=== PATIENT | female | born 1940 | race Caucasian/White ===

== ENCOUNTER 2019-04-17 14:18 | Emergency (ER) | payer MEDICARE, SELFPAY ==
--- NOTE | ~2019-04-17 | XR_ITS ---
EXAMINATION: XR knee RT 2V DATE: 04/17/2019 16:29 [employer]PERINTENDENT INDICATION: Knee pain after fall. TECHNIQUE: 2 views right knee FINDINGS: There is a right total knee arthroplasty which is well seated. No underlying fracture or tr aumatic malalignment. There is a small joint effusion. No focal soft tissue abnormality otherwise. No foreign bodies. IMPRESSION: 1. No acute fracture. Reviewed, dictated and finalized at location A. [place] [employer]PERATIONS SUPERINTENDENT IMPRESSION: 1. No acute fracture.
[2019-04-17 14:34] VITALS: BP 172/75; PULSE 66; RESP 20; TEMP 37.4; O2SAT 97
[2019-04-17 14:56] VITALS: BP 172/75; PULSE 66; RESP 20; TEMP 37.4; O2SAT 96
[2019-04-17 15:02] VITALS: BP 159/92; PULSE 70; RESP 14; O2SAT 99
--- NOTE | 2019-04-17 15:57 | ED.GENADULT ---
HPI - General Adult General Chief complaint: Fall Stated complaint: MULTIPLE C/O Time Seen by Provider: 04/17/19 15:55 Source: patient Mode of arrival: ambulatory Limitations: no limitations History of Present Illness HPI narrative: Pt is here for evaluation after having multiple falls at home this week. She hasn't fallen since Sat. She also has symptoms of UTI and feels this may be contributing. Her last fall she landed hard on her right knee and has had pain since. She has a walker at home but rarely uses it because it doesn't help . She has frequent UTI's and has what she describes as neurogenic bladder. Her last UTI was approximately 2 weeks ago. Onset (ago): day(s) Location: right (knee) Radiation: non-radiation Severity: moderate Pain Consistency: constant Relieving factors: none Exacerbating factors: movement Treatments prior to arrival: none Related Data Allergies Allergy/AdvReac Type Severity Reaction Status Date / Time Quinolones Allergy Mild JOINT PAIN Verified 11/07/18 18:30 ciprofloxacin Allergy Unknown Verified 04/22/13 11:47 levofloxacin Allergy Unknown Verified 04/22/13 11:48 Sulfa (Sulfonamide Allergy Unknown Verified 10/24/18 14:09 Antibiotics) Review of Systems Constitutional: Constitutional: Reports no additional constitutional complaints Cardiovascular: Cardiovascular: Reports no additional cardiovascular complaints Respiratory: Respiratory: Reports no additional respiratory complaints Gastrointestinal: Gastrointestinal: Reports no additional gastrointestinal complaints Genitourinary: Genitourinary: Reports urinary incontinence (chronic) and Reports vaginal pruritus Musculoskeletal: Musculoskeletal: Reports as per HPI Neurologic: Reports system reviewed and no additional complaints, except as documented [facility] Past Medical History Medical History (Updated 04/17/19 @ 17:47 by Ivelisse Jiménez PA-C) Cervical cancer Cholangiocarcinoma UTI (urinary tract infection) Surgical History Surgical History (Updated 04/17/19 @ 16:43 by Ivelisse Jiménez PA-C) History of colon resection Total knee replacement status Family History Family History (Updated 10/15/15 @ 23:19 by DOCTOR UNKNOWN) Father Family history of diabetes mellitus in first degree relative Family history of heart disease in male family member before age 55 Family history of coronary artery disease Family history of congestive heart failure Sibling Family history of diabetes mellitus in first degree relative Other Diabetes mellitus Family history of malignant neoplasm Family history of mental disorder Hypertension Social History Social History Smoking status: Never smoker Alcohol intake: never Gender identity (if verbalized by the patient): Female Exam Const: General: healthy appearing, no acute distress and alert Orientation/consciousness: patient oriented x3 HENMT: Head: normal to inspection Eyes: Pupils: Equal, round and reactive pupils present Resp: Effort & Inspection: normal respiratory effort Auscultation: clear to auscultation bilaterally Cardio: Rate: regular rate Rhythm: regular rhythm GI: GI Palp: Yes Soft to palpation Auscultation: normal bowel sounds : General: Yes no CVA tenderness Speculum Exam - Vagina: abnormal vaginal discharge white and caseous Other: erythema to vulvo area from scratching. Skin: General skin exam: normal color Neuro: General: patient oriented x3 and moves all extremities Extrem: General: normal to inspection and edema (knee, mild ) right Course Course Emergency Course: Pt states that she does not have an allergy to Cipro and that is what she usually takes for her UTI. She does not know what her reaction to sulfa medications is. Urine is consistent with UTI, exam with yeast. Will treat both. Recommend using walker at home and following up with PMD for referral to physical therapy. She is to call [employer] car for transportation. Haroldo S
[2019-04-17 16:16] VITALS: BP 104/94; PULSE 67; RESP 18; O2SAT 96
[2019-04-17 16:38] LABS: Basophils Absolute Auto 0.1 K/mm3 (0.0-0.1); Basophils Percent Auto 0.7 % (0.2-1.2); Eosinophils Absolute Auto 0.3 K/mm3 (0-0.3); Eosinophils Percent Auto 3.7 % (0-4.4); Hematocrit 38.6 % (37.0-47.0); Hemoglobin 12.5 g/dL (12.0-15.0); Immature Granulocyte Absolute 0.01 K/mm3 (0.00-0.031); Immature Granulocyte Percent A 0.1 % (0-0.5); Lymphocytes Absolute Auto 2.18 K/mm3 (0.9-3.2); Lymphocytes Percent Auto 30.9 % (18.3-44.2); Mean Corpuscular HGB Conc 32.4 g/dl (32-36); Mean Corpuscular Hemoglobin 27.3 pg (26-34); Mean Corpuscular Volume 84.3 fl (80-100); Mean Platelet Volume 9.7 fl (7.4-10.4); Monocytes Absolute Auto 0.5 K/mm3 (0.1-0.6); Monocytes Percent Auto 7.1 % (2.6-8.5); Neutrophils Absolute Auto 4.1 K/mm3 (1.3-6.7); Neutrophils Percent Auto 57.5 % (45.5-73.1); Platelet Count Result 234 k/mm3 (150-375); Red Blood Count 4.58 M/mm3 (4.2-5.4); Red Cell Distribution Width 13.3 % (11.5-14.5); White Blood Count 7.1 K/mm3 (4.5-10.0)
[2019-04-17 16:49] LABS: Alanine Aminotransferase 12 U/L (4-35); Albumin Level 3.8 g/dL (3.5-5.1); Alkaline Phosphatase 112 U/L (38-126); Aspartate Amino Transferase 19 U/L (14-36); Bilirubin,Total 0.4 mg/dL (0.2-1.3); Blood Urea Nitrogen 16 mg/dL (7-17); Calcium 9.2 mg/dL (8.4-10.2); Carbon Dioxide 24 mmol/L (22-30); Chloride 104 mmol/L (98-107); Estimated CRCL calculation 58 ml/min; Estimated Glomerular Filt Rate > 60; Glucose 129 mg/dL (65-105); Sodium 138 mmol/L (137-145)
[2019-04-17 17:29] LABS: Add Urine Microscopic? YES; Appearance Urine Cloudy (Clear); Bacteria Urine Trace /hpf; Bilirubin Urine Negative (Negative); Blood Urine 2+ (Negative); Color Urine Yellow (Yellow); Glucose Urine UA Negative (Negative); Ketones Urine Negative (Negative); Leukocyte Esterase Ur 3+ LEU/UL (Negative); Nitrate Urine Negative (Negative); Protein Urine 2+ mg/dL (Negative); RBC Urine >75 /hpf (0-2); Specific Grav Ur 1.025 (1.001-1.035); Squamous Epithelial Cell Urine Few /hpf (Few); Urobilinogen Urine Negative mg/dL (<2.0); WBC Clumps Urine Present /HPF; WBC Urine >75 /hpf
[2019-04-17] MEDS: FLUCONAZOLE 150 MG TABLET PO (17:50)
[2019-04-17 18:04] VITALS: BP 124/81; PULSE 71; RESP 20
== END 2019-04-17 18:15 | disposition home or self-care (01) ==
PROVIDERS: Physician Assistant; Emergency Provider Emergency Medicine; PCP Family Medicine
DX: N39.0 Urinary tract infection, site not specified (principal); M25.461 Effusion, right knee; Z96.659 Presence of unspecified artificial knee joint; Z90.49 Acquired absence of other specified parts of digestive tract; Z85.41 Personal history of malignant neoplasm of cervix uteri; Z85.09 Personal history of malignant neoplasm of other digestive organs; W19.XXXA Unspecified fall, initial encounter
CPT/HCPCS: 36415; 51701; 73560; 80053; 81001; 85025; 87077; 87086; 87088; 87186; 99283; A9270

== ENCOUNTER 2019-05-26 07:29 | Observation (INO) | payer MEDICARE, SELFPAY ==
--- NOTE | ~2019-05-26 | XR_ITS ---
EXAMINATION: XR chest 1V 05/26/2019 08:52 INDICATION: Status post fall. Chest pain. PROCEDURE: AP view of the chest COMPARISON: Comparison to multiple prior studies sequentially, with oldest reviewed study dated 08/2014. FINDINGS: The lungs are clear. The cardiomediastinal silhouette is within normal limits. There are no pleural effusions. There is no pneumothorax suspected. IMPRESSION: 1: NO ACUTE CARDIOPULMONARY DISEASE. Reviewed, dictated and finalized at location A.
--- NOTE | ~2019-05-26 | XR_ITS ---
EXAMINATION: XR knee RT 3V DATE: 05/26/2019 16:24 INDICATION: Right knee pain. Fall. TECHNIQUE: 3 views of right knee were obtained. COMPARISON: Right knee radiographs 04/17/2019 FINDINGS: There is a total right knee arthroplasty without patellar resurfacing in near-anatomic alig nment. No fracture. There are osteophytes of the patella. There is a small knee joint effusion. IMPRESSION: 1. Total right knee arthroplasty in near-anatomic alignment. 2. Small right knee joint effusion. Reviewed, dictated and finalized at location A.
--- NOTE | ~2019-05-26 | XR_ITS ---
XR humerus LT 05/26/2019 08:52 Indication: Left arm pain with swelling and bruising after fall Procedure: 2 views left humerus Comparison: 05/27/2018 Findings: No acute fracture or traumatic malalignment. Mild degenerative changes of the acromioclavic ular joint. No focal soft tissue abnormality. No foreign bodies. Impression: 1: No acute fracture. Reviewed, dictated and finalized at location A. Impression: 1: No acute fracture.
--- NOTE | ~2019-05-26 | CT_ITS ---
EXAMINATION: CT brain wo con DATE: 05/26/2019 08:48 INDICATION: Recurrent falls TECHNIQUE: Computed tomography (CT) of the head was performed without intravenous contrast. The dose- length product was 605.33 mGy-cm. The mA was adjusted according to patient size. Iterative reconstruc tion technique was employed. COMPARISON: CT dated 10/19/2016 FINDINGS: Generalized atrophy. No acute intracranial hemorrhage, infarction, mass or mass effect. The re are scattered moderate periventricular and subcortical white matter changes, most likely related t o small vessel ischemic disease (microangiopathy). No ventriculomegaly or midline shift. There is int racranial atherosclerosis. Paranasal sinuses and mastoids are pneumatized. No depressed skull fractur es. There is hyperostosis frontalis interna. Midline sagittal images demonstrate a normal corpus call osum and craniovertebral junction. IMPRESSION: 1. No acute intracranial abnormality. 2: Chronic age-related findings. Reviewed, dictated and finalized at location A.
--- NOTE | ~2019-05-26 | CT_ITS ---
EXAMINATION: CT lumbar spine wo con DATE: 05/26/2019 08:50 INDICATION: Frequent falls. Low back pain. History of lumbar fracture. TECHNIQUE: Computed tomography (CT) of the lumbar spine was performed without intravenous contrast. T he dose-length product was 1277.93 mGy-cm. Automated exposure control and iterative reconstruction te sarahque were employed. COMPARISON: CT abdomen dated 11/07/2018 FINDINGS: Stable chronic T11 burst fracture with approximately 60% loss of vertebral body height. Sta ble degenerative spondylolisthesis at L4-5 secondary to facet hypertrophy. There is disc narrowing at L4-5. No acute fracture or traumatic malalignment. Normal lumbar lordosis. There is atherosclerosis of the aorta. Stable chronic scar tissue in the presacral space. There is mild multilevel facet hyper trophy. IMPRESSION: 1. No acute fracture. 2: Stable chronic T11 burst fracture. 3: Mild-moderate lumbar spondylosis. Reviewed, dictated and finalized at location A.
[2019-05-26 07:20] VITALS: PULSE 80; RESP 16; TEMP 36.3; O2SAT 96
--- NOTE | 2019-05-26 07:31 | ECG_ITS ---
Measurements Intervals [place] Rate: 80 P: 28 DE: 167 QRS: -7 QRSD: 81 T: 64 QT: 385 QTc: 445 Interpretive Statements SINUS RHYTHM BASELINE ARTIFACT- I, III, AVL NORMAL ECG Electronically Signed On 05-26-2019 8:13:35 CDT by Alexandru Patel D.O.
--- NOTE | 2019-05-26 07:39 | ED.FALL ---
HPI - Fall General Chief Complaint: Fall Stated Complaint: FALLS Source: RN notes reviewed History of Present Illness HPI Narrative: Patient presents to emergency department from home for fall. Patient states she is had 4 falls over the past 24 hours. Patient currently lives at home by herself. States she does walk with a walker. Patient states she is been more weak. She denies striking her head or any loss of consciousness. Reports lower back pain as well as left upper arm pain. Patient denies any recent illness. Denies any fevers or chills chest pain shortness of breath abdominal pain nausea vomiting or any other symptoms. Patient does have a history of cholangiocarcinoma with partial liver resection in November. Following this she had a positive lymph node and followed with [facility] for oncology where she was told she needs chemo. The patient elected not to receive chemo or any further treatment at that time and was told at that time she had 15 to 18 months left to live. Related Data Home Medications Medication Instructions Recorded Confirmed amlodipine 5 mg PO DAILY 05/26/19 bupropion HCl 150 mg PO QAM 05/26/19 citalopram 40 mg DAILY 05/26/19 gabapentin 400 mg PO BID 05/26/19 hydroxyzine HCl 25 mg PO QID PRN 05/26/19 lisinopril 20 mg PO DAILY 05/26/19 potassium chloride 20 meq PO DAILY 05/26/19 pravastatin 80 mg PO DAILY 05/26/19 sumatriptan succinate 100 mg PO ONCE 05/26/19 verapamil 180 mg PO DAILY 05/26/19 Allergies Allergy/AdvReac Type Severity Reaction Status Date / Time Quinolones Allergy Mild JOINT PAIN Verified 11/07/18 18:30 ciprofloxacin Allergy Unknown Verified 04/22/13 11:47 levofloxacin Allergy Unknown Verified 04/22/13 11:48 Sulfa (Sulfonamide Allergy Unknown Verified 10/24/18 14:09 Antibiotics) Review of Systems Review of Systems: Narrative: Gen.: Denies fevers or chills Eyes: Denies eye pain or visual change ENT: Denies congestion Respiratory: Denies shortness of breath or cough CV: Denies chest pain or palpitations GI: Denies abdominal pain nausea, emesis or diarrhea denies burning, urgency, frequency or hematuria Musculoskeletal: Reports lower back pain Neuro: Reports weakness Skin: Denies rash Except as documented, all other systems reviewed and negative [facility] Past Medical History Medical History Cervical cancer Cholangiocarcinoma UTI (urinary tract infection) Surgical History Surgical History (Updated 04/17/19 @ 16:43 by Ivelisse Jiménez PA-C) History of colon resection Total knee replacement status Family History Family History (Updated 10/15/15 @ 23:19 by DOCTOR UNKNOWN) Father Family history of diabetes mellitus in first degree relative Family history of heart disease in male family member before age 55 Family history of coronary artery disease Family history of congestive heart failure Sibling Family history of diabetes mellitus in first degree relative Other Diabetes mellitus Family history of malignant neoplasm Family history of mental disorder Hypertension Social History Social History Smoking status: Never smoker Alcohol intake: never Gender identity (if verbalized by the patient): Female Exam Narrative: Exam Narrative: APPEARANCE: No acute distress, nontoxic, resting in bed EYES: EOMI, Mason HEENT: Normocephalic, atraumatic, OMM RESPIRATORY: No respiratory distress Clear to auscultation bilaterally with no rhonchi wheezing or rales. CARDIOVASCULAR: Regular rate and rhythm without murmurs rubs or gallops. ABDOMINAL: Soft, nontender, nondistended, no rebound or guarding MUSCULOSKELETAl: Moves all extremities. No clubbing, cyanosis or edema. Ecchymosis over left mid upper arm no tenderness left shoulder elbow wrist with full range of motion of all, radial pulse 2+ neurovascular intact Back: No midline thoracic daniela
[2019-05-26 07:49] LABS: Basophils Absolute Auto 0.1 K/mm3 (0.0-0.1); Basophils Percent Auto 0.9 % (0.2-1.2); Eosinophils Absolute Auto 0.3 K/mm3 (0-0.3); Hematocrit 37.6 % (37.0-47.0); Hemoglobin 12.1 g/dL (12.0-15.0); Immature Granulocyte Absolute 0.02 K/mm3 (0.00-0.031); Immature Granulocyte Percent A 0.3 % (0-0.5); Lymphocytes Absolute Auto 1.32 K/mm3 (0.9-3.2); Lymphocytes Percent Auto 19.8 % (18.3-44.2); Mean Corpuscular HGB Conc 32.2 g/dl (32-36); Mean Corpuscular Hemoglobin 27.7 pg (26-34); Mean Platelet Volume 9.3 fl (7.4-10.4); Monocytes Absolute Auto 0.6 K/mm3 (0.1-0.6); Monocytes Percent Auto 8.2 % (2.6-8.5); Neutrophils Absolute Auto 4.5 K/mm3 (1.3-6.7); Neutrophils Percent Auto 66.8 % (45.5-73.1); Platelet Count Result 250 k/mm3 (150-375); Red Blood Count 4.37 M/mm3 (4.2-5.4); Red Cell Distribution Width 13.2 % (11.5-14.5); White Blood Count 6.7 K/mm3 (4.5-10.0)
[2019-05-26 08:00] LABS: Alanine Aminotransferase 12 U/L (4-35); Albumin Level 3.6 g/dL (3.5-5.1); Alkaline Phosphatase 133 U/L (38-126); Aspartate Amino Transferase 19 U/L (14-36); Bilirubin,Total 0.5 mg/dL (0.2-1.3); Blood Urea Nitrogen 12 mg/dL (7-17); Calcium 8.9 mg/dL (8.4-10.2); Carbon Dioxide 26 mmol/L (22-30); Chloride 106 mmol/L (98-107); Estimated CRCL calculation 45 ml/min; Estimated Glomerular Filt Rate 48; Glucose 114 mg/dL (65-105); Potassium 4.5 mmol/L (3.4-5.0); Sodium 137 mmol/L (137-145)
--- NOTE | 2019-05-26 08:20 | PC.NURSE ---
pts colostomy bag emptied.
[2019-05-26 08:40] LABS: Prothrombin Time 12.7 Seconds (11.1-14.7)
[2019-05-26 08:41] LABS: Partial Thromboplastin Time 29.5 SECONDS (22.3-36.8)
[2019-05-26 09:26] LABS: Add Urine Microscopic? YES; Appearance Urine Cloudy (Clear); Bilirubin Urine Negative (Negative); Blood Urine 1+ (Negative); Color Urine Yellow (Yellow); Glucose Urine UA Negative (Negative); Ketones Urine Negative (Negative); Leukocyte Esterase Ur 3+ LEU/UL (Negative); Nitrate Urine Positive (Negative); Protein Urine 1+ mg/dL (Negative); Specific Grav Ur 1.012 (1.001-1.035); Squamous Epithelial Cell Urine Rare /hpf (Few); Urobilinogen Urine Negative mg/dL (<2.0); WBC Clumps Urine Present /HPF; WBC Urine >75 /hpf
[2019-05-26 11:40] VITALS: BP 164/83; PULSE 72; RESP 18; TEMP 37.2; O2SAT 98
--- NOTE | 2019-05-26 11:43 | ADMGEN ---
This patient, Amy Underwood, was admitted to [facility] Surg Room 330-02. Patient/family oriented to hospital policies and general routines including ID bracelet, bed and alarms, visiting hours, pain management, procedures, bathroom and other care routines, personal items, smoking policy, room service/diet, and visiting hours. Valuables list has been completed. Information on how to activate the Rapid Response Team has been discussed. Patient/Family are encouraged to report perceived risks to care and to ask questions if they do not understand what they are told or what they should do.
[2019-05-26 11:59] VITALS: BMI 44.3
[2019-05-26] MEDS: SODIUM CHLORIDE 0.9% IV 1,000 ML 80 ML IV CONT (12:14)
--- NOTE | 2019-05-26 14:00 | PM.IMHP ---
H&P: HPI History of Present Illness Chief complaint: Frequent falls. Narrative: Amy Underwood is a very pleasant 78-year-old female with history of cervical cancer in 1984, cholangiocarcinoma status post resection in November 2016, hypertension, and several other comorbidities who presented to the emergency department earlier this morning via EMS from home for evaluation of frequent falls. She has had multiple falls over the past several weeks, including 4 falls in the past 24 hours. She ambulates with a cane, and tells me that recently ?I feel really shaky inside when I am walking? which causes her to lose her balance and fall. Most falls she ends up going down onto her knees but in the last 24 hour she has fallen onto her left side, sustaining a large bruise on her left upper extremity. She is also complaining of pain in her right knee since the most recent fall. She is concerned that her cholangiocarcinoma is progressing, as she had no adjuvant therapy after her resection. An abdominal lymph node was biopsied sometime in November 2018, positive for metastatic cholangiocarcinoma but she declined further treatment. She also mentions that she has been ?battling a UTI for the last several months.? She continues to have dysuria, urgency, hesitancy, and frequency as well as malodorous urine. She has not had fever, chills, or sweats. Her appetite has been as per usual. She has not had fever or sweats but has had some chills. She denies head trauma and loss of consciousness in the falls. No vertigo. No focal weakness or paresthesias. She has not had cold or flu symptoms. No chest pain or shortness of breath. No nausea, vomiting, or loose stools. Review of Systems Review of Systems: Narrative: Twelve systems were reviewed with pertinent positives and negatives as per HPI. Weight has remained stable. No headache. No recent cold or flu symptoms. She denies chest pain, pleuritic pain, shortness of breath, and cough. Colostomy output is as per usual, sometimes having no output for several days. She was started on Colace which seems to have helped her output. Except as documented, all other systems were reviewed and are negative. [facility] Past Medical History Medical History (Updated 05/26/19 @ 15:36 by Cori Bailon PA-C) Cervical cancer In 1988. She did receive radiation implants with subsequent damage to both the bladder and the colon. In 2005 she underwent partial colon resection with colostomy. She also has neurogenic bladder and has intermittently had indwelling Vasquez catheters. Cholangiocarcinoma Status post resection and November [address] Melgar, hepatobiliary specialist at [place]. Lymph node biopsied in November 2018 was positive for metastatic disease, but she has declined further treatment. Chronic anemia Degenerative disc disease Depression with anxiety GERD (gastroesophageal reflux disease) History of kidney stones Hyperlipidemia Hypertension Migraine headache Osteoarthritis Peripheral neuropathy UTI (urinary tract infection) Frequent urinary tract infections, with last culture growing out Pseudomonas. Surgical History Surgical History (Updated 05/26/19 @ 15:29 by Cori Bailon PA-C) History of colon resection With colostomy secondary to complications from radiation therapy, 2016. History of resection of liver In November [address] Jaimes at [facility]. Status post cataract extraction Status post cholecystectomy 2005. Status post hysterectomy Status post total bilateral knee replacement Status post tubal ligation Family History Family History Father Family history of diabetes mellitus in first degree relative Family history of heart disease in male family member before age 55 Family history of coronary artery disease Family history of congestive heart failure Sibling Family history of diabetes mellitus in first
[2019-05-26 14:23] VITALS: BP 144/64; PULSE 74; RESP 16; TEMP 37.2; O2SAT 95
[2019-05-26 22:00] VITALS: BP 145/63; PULSE 75; RESP 18; TEMP 36.8; O2SAT 97
[2019-05-26] MEDS: buPROPion HCL XL (24 HR) 150 MG TABCR PO (22:34)
[2019-05-26] MEDS: ALPRAZOLAM 0.5 MG TABLET PO (23:00)
[2019-05-27] MEDS: SODIUM CHLORIDE 0.9% IV 1,000 ML 80 ML IV CONT (05:13)
[2019-05-27 06:00] VITALS: BP 147/56; PULSE 70; RESP 18; TEMP 36.7; O2SAT 96
[2019-05-27 06:29] LABS: Basophils Percent Auto 0.5 % (0.2-1.2); Eosinophils Absolute Auto 0.2 K/mm3 (0-0.3); Hematocrit 34.2 % (37.0-47.0); Hemoglobin 10.8 g/dL (12.0-15.0); Immature Granulocyte Absolute 0.01 K/mm3 (0.00-0.031); Immature Granulocyte Percent A 0.2 % (0-0.5); Lymphocytes Absolute Auto 1.72 K/mm3 (0.9-3.2); Lymphocytes Percent Auto 28.8 % (18.3-44.2); Mean Corpuscular HGB Conc 31.6 g/dl (32-36); Mean Corpuscular Hemoglobin 27.3 pg (26-34); Mean Corpuscular Volume 86.4 fl (80-100); Mean Platelet Volume 9.4 fl (7.4-10.4); Monocytes Absolute Auto 0.6 K/mm3 (0.1-0.6); Monocytes Percent Auto 9.4 % (2.6-8.5); Neutrophils Absolute Auto 3.4 K/mm3 (1.3-6.7); Neutrophils Percent Auto 57.1 % (45.5-73.1); Platelet Count Result 221 k/mm3 (150-375); Red Blood Count 3.96 M/mm3 (4.2-5.4); Red Cell Distribution Width 13.2 % (11.5-14.5)
[2019-05-27 06:38] LABS: Blood Urea Nitrogen 13 mg/dL (7-17); Calcium 8.1 mg/dL (8.4-10.2); Carbon Dioxide 25 mmol/L (22-30); Chloride 107 mmol/L (98-107); Estimated CRCL calculation 50 ml/min; Estimated Glomerular Filt Rate 54; Glucose 117 mg/dL (65-105); Potassium 4.1 mmol/L (3.4-5.0); Sodium 136 mmol/L (137-145)
[2019-05-27] MEDS: GABAPENTIN 400 MG CAPSULE PO (08:49)
[2019-05-27] MEDS: AMLODIPINE BESYLATE 5 MG TABLET PO (08:49)
[2019-05-27] MEDS: VERAPAMIL HCL 180 MG TABLET ER PO (08:49)
[2019-05-27] MEDS: lisinopriL 20 MG TABLET PO (08:49)
[2019-05-27] MEDS: CITALOPRAM HYDROBROMIDE 20 MG TABLET 40 MG PO (08:49)
[2019-05-27] MEDS: POTASSIUM CHLORIDE 20 MEQ TABLET.ER PO (08:49)
[2019-05-27 14:09] VITALS: BP 135/54; PULSE 70; RESP 18; TEMP 36.6; O2SAT 94
--- NOTE | 2019-05-27 16:48 | PM.IMPN ---
Progress Note: A&P Assessment and Plan (1) Frequent falls: Code(s): R29.6 - Repeated falls Status: Acute Assessment and Plan: Likely due to dehydration in the setting of urinary tract infection and deconditioning. No acute fracture, acute intracranial findings on imaging Fall precautions initiated. PT/OT consulted. Possible placement if patient agreeable (2) UTI (urinary tract infection): Code(s): N39.0 - Urinary tract infection, site not specified Status: Acute Assessment and Plan: UC growing gram negative bacilli. Await sensitivities Continue cefepime for now Tailor abx upon sensitivities Monitor (3) Dehydration: Code(s): E86.0 - Dehydration Status: Acute Assessment and Plan: Cr 1.00 today Will stop IVF now Monitor Cr (4) Hypertension: Code(s): I10 - Essential (primary) hypertension Status: Acute Assessment and Plan: BP reviewed and 130s sys this afternoon. Continue antihypertensives and monitor daily. (5) Cholangiocarcinoma: Code(s): C22.1 - Intrahepatic bile duct carcinoma Status: Acute Assessment and Plan: Status post hepatic resection in November 2016. She has declined adjuvant therapy despite positive lymph node biopsy in 2018. Further care per Dr. Melgar, her specialist (6) Depression with anxiety: Code(s): F41.8 - Other specified anxiety disorders Status: Acute Assessment and Plan: Well controlled on home medication. Continue bupropion and citalopram. Subjective Date/time seen: 05/27/19 16:48 Interval history: Patient is a 78 yo F with history of cervical cancer in 1984, cholangiocarcinoma status post resection in November 2016, hypertension, and several other comorbidities who is here for treatment for UTI/dehydration and evaluation for frequent falls. Patient states she is feeling slightly better today. She still has burning when urinating; she notes cloudy urine as well. She thinks she did okay with PT/OT. She tells me she denies feeling dizzy/lightheaded, but notes that when she has fallen, she usually just loses her balance; no LOC or presyncope. She has no other complaints today. Denies f/c/ns, headaches, dizziness, lightheadedness, changes in v/h, cp/palpitations, sob/cough, n/v, changes in ostomy output, abd pain, dysphagia, hematuria, calf pain/swelling, s/sx of stroke. Review of Systems Review of Systems: All systems reviewed & are unremarkable except as noted in HPI and below Exam Narrative: Exam Narrative: Patient lying supine in bed at time of visit Const: General: cooperative, comfortable, no acute distress, well developed, alert and awake Nutritional Appearance: obese Orientation/consciousness: patient oriented x3 HENMT: General nose exam: Normal nares present Eyes: General: appearance normal, both eyes and all related structures Sclera: sclerae normal Pupils: Equal, round and reactive pupils present EOM: EOMs intact bilaterally Neck: Neck: trachea midline and supple Resp: Effort & Inspection: normal respiratory effort Auscultation: clear to auscultation bilaterally and diminished lung sounds Cardio: Rate: regular rate Rhythm: regular rhythm Heart sounds: no murmurs GI: Inspection: non-distended, obesity, scar (RUQ to epigastric region) and other (Ostomy noted) GI Palp: Yes Soft to palpation Auscultation: normal bowel sounds and normoactive bowel sounds Skin: General skin exam: normal color and no rashes or lesions noted Neuro: General: patient oriented x3, moves all extremities and no focal motor deficits Speech: normal speech Motor exam (neuro): 5/5 motor strength present throughout Extrem: Right lower extrem
[2019-05-27] MEDS: MICONAZOLE NITRATE 2% VAGINAL CREAM 45 GM TUBE 1 APPFUL VAGINAL (20:50)
[2019-05-27] MEDS: buPROPion HCL XL (24 HR) 150 MG TABCR PO (20:50)
[2019-05-27] MEDS: ALPRAZOLAM 0.5 MG TABLET PO (20:50)
[2019-05-27 22:00] VITALS: BP 149/59; PULSE 64; RESP 20; TEMP 36.2; O2SAT 94
[2019-05-28 06:00] VITALS: BP 115/66; PULSE 67; RESP 18; TEMP 36.7; O2SAT 95
[2019-05-28 06:11] LABS: Basophils Percent Auto 0.7 % (0.2-1.2); Eosinophils Absolute Auto 0.3 K/mm3 (0-0.3); Eosinophils Percent Auto 4.5 % (0-4.4); Hematocrit 33.7 % (37.0-47.0); Hemoglobin 10.7 g/dL (12.0-15.0); Immature Granulocyte Absolute 0.02 K/mm3 (0.00-0.031); Immature Granulocyte Percent A 0.4 % (0-0.5); Lymphocytes Absolute Auto 1.35 K/mm3 (0.9-3.2); Lymphocytes Percent Auto 24.3 % (18.3-44.2); Mean Corpuscular HGB Conc 31.8 g/dl (32-36); Mean Corpuscular Hemoglobin 27.5 pg (26-34); Mean Corpuscular Volume 86.6 fl (80-100); Mean Platelet Volume 9.8 fl (7.4-10.4); Monocytes Absolute Auto 0.6 K/mm3 (0.1-0.6); Monocytes Percent Auto 10.1 % (2.6-8.5); Neutrophils Absolute Auto 3.3 K/mm3 (1.3-6.7); Platelet Count Result 219 k/mm3 (150-375); Red Blood Count 3.89 M/mm3 (4.2-5.4); Red Cell Distribution Width 13.4 % (11.5-14.5); White Blood Count 5.6 K/mm3 (4.5-10.0)
[2019-05-28 07:30] LABS: Blood Urea Nitrogen 14 mg/dL (7-17)
[2019-05-28 07:31] LABS: Calcium 8.4 mg/dL (8.4-10.2); Carbon Dioxide 22 mmol/L (22-30); Chloride 110 mmol/L (98-107); Estimated CRCL calculation 55 ml/min; Estimated Glomerular Filt Rate > 60; Glucose 107 mg/dL (65-105); Magnesium 1.8 mg/dL (1.6-2.3); Potassium 4.1 mmol/L (3.4-5.0); Sodium 137 mmol/L (137-145)
[2019-05-28] MEDS: CITALOPRAM HYDROBROMIDE 20 MG TABLET 40 MG PO (09:10)
[2019-05-28] MEDS: GABAPENTIN 400 MG CAPSULE PO (09:10)
[2019-05-28] MEDS: POTASSIUM CHLORIDE 20 MEQ TABLET.ER PO (09:10)
[2019-05-28] MEDS: lisinopriL 20 MG TABLET PO (09:11)
[2019-05-28] MEDS: VERAPAMIL HCL 180 MG TABLET ER PO (09:11)
[2019-05-28] MEDS: AMLODIPINE BESYLATE 5 MG TABLET PO (09:11)
--- NOTE | 2019-05-28 13:48 | PM.DS ---
DS: Diagnosis Admitting Diagnosis Admitting Diagnosis: Repeated falls Discharge Diagnosis (1) Frequent falls: Code(s): R29.6 - Repeated falls Status: Acute Assessment and Plan: Likely due to dehydration in the setting of urinary tract infection and deconditioning; possibly medication induced as well. No acute fracture, acute intracranial findings on imaging Fall precautions initiated. PT/OT eval; they recommend HH therapy. Patient does not wish to go to SNF; agreeable to HH d/c today home with HH. Follow up with PCP after discharge about falls (2) UTI (urinary tract infection): Code(s): N39.0 - Urinary tract infection, site not specified Status: Acute Assessment and Plan: UC growing K. pneum sensitive to Rocephin. No symptoms today One dose of Rocephin today Will discharge on Cefdinir for 2 additional days starting tomorrow; 5 days total of antibiotics Monitor (3) Dehydration: Code(s): E86.0 - Dehydration Status: Acute Assessment and Plan: Cr 0.90 today f/u PCP (4) Hypertension: Code(s): I10 - Essential (primary) hypertension Status: Acute Assessment and Plan: BP reviewed and 110s sys this afternoon. Continue antihypertensives and monitor daily. (5) Cholangiocarcinoma: Code(s): C22.1 - Intrahepatic bile duct carcinoma Status: Acute Assessment and Plan: Status post hepatic resection in November 2016. She has declined adjuvant therapy despite positive lymph node biopsy in 2018. Further care per Dr. Melgar, her specialist (6) Depression with anxiety: Code(s): F41.8 - Other specified anxiety disorders Status: Acute Assessment and Plan: Well controlled on home medication. Continue bupropion and citalopram. DS: Summary Hospital Course Reason for hospitalization: UTI, frequent falls, dehydration Hospital Course: Patient is a 78 yo F with history of cervical cancer in 1984, cholangiocarcinoma status post resection in November 2016, hypertension, and several other comorbidities who presented to the emergency department earlier on 05/25 via EMS from home for evaluation of frequent falls. She had multiple falls in the past several weeks including 4 falls in the previous 24 hours prior to presentation. She had been feeling really shaky when ambulating with her can which causes her to lose her balance and fall. She sustained a large bruise on her LUE the last fall and complained of right knee pain since that fall. She had also been having dysuria, urgency, hesitency, and frequency and malodorous urine. She was evaluated in the ER for fractures which imaging showed no acute fracture or intracranial abnormality. UA suggestive of UTI. Please see H&P for further details. Presenting VS: BP 164/83, HR 80, RR 16, temp 97.4, sat 96% RA Presenting Pertinent labs: WBC 6.7k, CR 1.10 (05/27 0.90). UA shows yellow/cloudy urine, 1+ protien, 1+ blood, positive nitrate, 3+ leuk est, RBC 11-20, >75 WBC, WBC clumps present. CBC, coags, CMP, UA otherwise unremarkable Micro: UC showed growth of Klebsiella pnemoniae susceptible to Rocephin Imagin/[address] IMPRESSION: 1. No acute intracranial abnormality. 2: Chronic age-related findings. 05/25 CXR IMPRESSION: 1: NO ACUTE CARDIOPULMONARY DISEASE. 05/25 left humerus xray Impression: 1: No acute fracture. 05/[address] IMPRESSION: 1. No acute fracture. 2: Stable chronic T11 burst fracture. 3: Mild-moderate lumbar spondylosis. 05/25 rt knee xray IMPRESSION: 1. Total right knee arthroplasty in near-anatomic alignment. 2. Small right knee joint effusion. ECG: Interpretive Statements SINUS RHYTHM BASELINE ARTIFACT- I, III, AVL NORMAL
[2019-05-28] MEDS: ACETAMINOPHEN/ASPIRIN/CAFFEINE 250-250-65 MG TABLET 1 TABLET PO (14:20)
[2019-05-28 14:38] VITALS: BP 132/63; PULSE 68; RESP 20; TEMP 37.4; O2SAT 96
== END 2019-05-28 15:50 | disposition home health service (06) ==
LOC: ANHED 10:22 → ANH3MEDSUR 10:44
PROVIDERS: Physician Assistant; Admitting Provider Internal Medicine; Emergency Provider Emergency Medicine; Visit Provider Family Medicine
DX: N39.0 Urinary tract infection, site not specified (principal); B96.1 Klebsiella pneumoniae [K. pneumoniae] as the cause of diseases classified elsewhere; E86.0 Dehydration; R29.6 Repeated falls; I10 Essential (primary) hypertension; C22.1 Intrahepatic bile duct carcinoma; C77.9 Secondary and unspecified malignant neoplasm of lymph node, unspecified; F41.8 Other specified anxiety disorders; N31.9 Neuromuscular dysfunction of bladder, unspecified; K21.9 Gastro-esophageal reflux disease without esophagitis; E78.5 Hyperlipidemia, unspecified; G62.9 Polyneuropathy, unspecified; Z85.41 Personal history of malignant neoplasm of cervix uteri; Z93.3 Colostomy status; Z96.653 Presence of artificial knee joint, bilateral
CPT/HCPCS: 36415; 70450; 71045; 72131; 73060; 73562; 80048; 80053; 81001; 83735; 85025; 85610; 85730; 87077; 87086; 87088; 87186; 93005; 96361; 96365; 96367; 97110; 97116; 97161; 97165; 97535; 99285; A9270; G0378; J0692; J0696; J7030

== ENCOUNTER 2019-06-05 10:49 | Inpatient (IN) | payer MEDICARE, SELFPAY ==
[2019-06-05] VITALS (18 sets, daily range): BP systolic 111–144; BP diastolic 61–96; PULSE 63–137; RESP 16–31; TEMP 36.4–36.7; O2SAT 85–99; BMI 42.4
--- NOTE | ~2019-06-05 | US_ITS ---
US venous doppler [facility] DATE: 06/05/2019 16:41 INDICATION: Elevated d-dimer TECHNIQUE: Real-time and color flow imaging and Doppler analysis of the veins of the lower extremitie s COMPARISON: None FINDINGS: There is spontaneous and phasic flow and normal augmentation and color flow signal and norm al compression of the deep veins of both legs. The greater saphenous veins are patent. IMPRESSION: Negative examination Reviewed, dictated and finalized at Location [facility]. Reviewed, dictated and finalized at location B. IMPRESSION: Negative examination
--- NOTE | ~2019-06-05 | CT_ITS ---
EXAMINATION: CTA chest PE protocol DATE: 06/05/2019 13:03 INDICATION: Shortness of breath TECHNIQUE: Computed tomography (CT) pulmonary angiogram of the chest was performed with 100 mL Omnipa que-350 intravenous contrast. Additional 3D reconstructions utilizing coronal maximum intensity proje ction (MIP) were performed. Automated exposure control and iterative reconstruction technique were em ployed. The dose-length product was 676.97 mGy-cm. COMPARISON: None FINDINGS: Excellent contrast opacification of the pulmonary arteries. There is mild streak artifact from dense contrast in the superior vena cava and right atrium. Minimal scattered respiratory motion artifact wh ich does not significantly limit evaluation. No pulmonary embolism. Region of multiple tiny centrilob ular nodules and subtle tree-in-bud pattern in the right upper lobe consistent with endobronchial spr ead of disease most likely bronchiolitis/early pneumonia. Aspiration unlikely given the nondependent position. Slightly larger and more discrete 4 mm nodule in the right lower lobe. Couple small calcifi ed nodules in the right upper and lower lobes consistent with old granulomatous disease. No pulmonary edema, pleural effusion or pneumothorax. Heart size is normal. No pericardial effusion. Thoracic aor ta is normal in caliber with no dissection. No pathologically enlarged thoracic lymphadenopathy. Post operative changes along the posterior margin of the liver consistent with prior right hepatectomy. Mi ld atrophy of the visualized upper poles of both kidneys with mild cortical scarring at the left uppe r pole. Chronic T11 compression fracture with 60% anterior vertebral body height loss. Mild lower tho racic spondylosis. IMPRESSION: 1. No pulmonary embolism. 2. Mild airspace disease in the right upper lobe pattern most consistent with bronchiolitis or early pneumonia. Reviewed, dictated and finalized at location A. IMPRESSION: 1. No pulmonary embolism. 2. Mild airspace disease in the right upper lobe pattern most consistent with b ronchiolitis or early pneumonia.
--- NOTE | ~2019-06-05 | XR_ITS ---
EXAMINATION: XR chest 1V portable INDICATION: Shortness of breath TECHNIQUE: Portable AP chest at 1549 hours COMPARISON: 1107 hours FINDINGS: The lungs are free of acute opacities. There is no pleural effusion or pneumothorax. The ca rdiomediastinal silhouette is normal. Surgical clips are noted in the right upper quadrant. IMPRESSION: 1. No acute cardiopulmonary abnormality. Reviewed, dictated and finalized at location A.
--- NOTE | ~2019-06-05 | XR_ITS ---
XR chest 2V DATE: 06/05/2019 11:19 INDICATION: Shortness of breath TECHNIQUE: 2 views COMPARISON: 06/05/2019 AP chest 12/21/2017 two-view chest FINDINGS: Normal heart size. There is aortic calcification and unfolding. No hilar or mediastinal en largement. No pulmonary infiltrate or consolidation, pleural effusion or pulmonary vascular congestio n or pneumothorax. There is chronic prominent apparent anterior wedge compression fracture deformity of the lower thorac ic vertebral body. There is diffuse osteopenia. Surgical clips overlie the right upper abdomen. IMPRESSION: No active cardiac pulmonary disease Aortic atherosclerosis Reviewed, dictated and finalized at location B.
--- NOTE | ~2019-06-05 | US_ITS ---
EXAMINATION: US renal BI DATE: 06/06/2019 15:07 INDICATION: Acute renal insufficiency. TECHNIQUE: Multiple ultrasound grayscale images of the kidneys were obtained. COMPARISON: CT dated 11/07/2018 and ultrasound dated 12/22/2017 FINDINGS: The right kidney measures 10.7 x 4.4 x 4.6 cm. The left kidney measures 11.1 x 3.2 x 4.7 cm. Interval development of moderate cortical atrophy at the right kidney. The kidneys demonstrate normal echogen icity. There is no hydronephrosis in either kidney. No stones identified. Vasquez catheter within the decompressed bladder which limits evaluation. IMPRESSION: 1. Interval development of moderate cortical atrophy at the right kidney which is of indeterminate e tiology. No hydronephrosis. Reviewed, dictated and finalized at location A. IMPRESSION: 1. Interval development of moderate cortical atrophy at the right kidney which is of indeterminate etiology. No hydronephrosis.
--- NOTE | 2019-06-05 11:23 | ECG_ITS ---
Measurements Intervals [place] Rate: 69 P: 79 RI: 144 QRS: -1 QRSD: 78 T: 69 QT: 390 QTc: 419 Interpretive Statements SINUS RHYTHM NONSPECIFIC T-WAVE ABNORMALITY- ANT/INF LEADS BASELINE WANDER- I, II, V5-V6 BORDERLINE ECG Electronically Signed On 06-05-2019 13:12:42 CDT by Alexandru Patel D.O.
--- NOTE | 2019-06-05 11:38 | ED.SOB ---
HPI - SOB/Dyspnea General Chief Complaint: Shortness of Breath/Dyspnea Stated Complaint: COUGH/FEVER Time Seen by Provider: 06/05/19 10:55 Source: patient Mode of arrival: EMS Limitations: no limitations History of Present Illness HPI Narrative: A 78 y/o female presents to the ED, via EMS, with c/o severe productive cough. Pt states that the cough started 4 days ago and produces a green phlegm. She does not note any aggravating or alleviating factors for her productive cough. Pt took cough medicine yesterday, but is unsure what medication it was. She reports SOB, fever, and wheezing. Pt adds that her fever was 102F at home, but it resolved today. MD elicited complaint: cough (Productive) Onset (ago): day(s) (4) Timing: constant Severity: severe Exacerbating factors: nothing Relieving factors: nothing Associated symptoms: fever (Resolved), wheezing and other (SOB) Related Data Home Medications Medication Instructions Recorded Confirmed alprazolam 0.5 mg PO HS 05/26/19 06/05/19 amlodipine 5 mg PO DAILY 05/26/19 06/05/19 bupropion HCl 150 mg PO QPM 05/26/19 06/05/19 citalopram 40 mg DAILY 05/26/19 06/05/19 gabapentin 400 mg PO BID 05/26/19 06/05/19 hydroxyzine HCl 25 mg PO QID PRN 05/26/19 06/05/19 lisinopril 20 mg PO DAILY 05/26/19 06/05/19 potassium chloride 20 meq PO DAILY 05/26/19 06/05/19 sumatriptan succinate 100 mg PO PRN 05/26/19 06/05/19 verapamil 180 mg PO DAILY 05/26/19 06/05/19 Allergies Allergy/AdvReac Type Severity Reaction Status Date / Time Quinolones Allergy Mild JOINT PAIN Verified 05/26/19 11:09 ciprofloxacin Allergy Unknown Unknown Verified 05/26/19 11:09 levofloxacin Allergy Unknown Unknown Verified 05/26/19 11:09 Sulfa (Sulfonamide Allergy Unknown Unknown Verified 05/26/19 11:09 Antibiotics) Review of Systems Review of Systems: All systems reviewed & are unremarkable except as noted in HPI and below Constitutional: Constitutional: Reports fever(s) (Resolved) Respiratory: Respiratory: Reports cough (Productive), Reports dyspnea and Reports wheezing PMFSH Past Medical History Medical History Cervical cancer In 1988. She did receive radiation implants with subsequent damage to both the bladder and the colon. In 2005 she underwent partial colon resection with colostomy. She also has neurogenic bladder and has intermittently had indwelling Vasquez catheters. Cholangiocarcinoma Status post resection and November [address] Melgar, hepatobiliary specialist at [facility]. Lymph node biopsied in November 2018 was positive for metastatic disease, but she has declined further treatment. Chronic anemia Degenerative disc disease Depression with anxiety GERD (gastroesophageal reflux disease) History of kidney stones Hyperlipidemia Hypertension Migraine headache Osteoarthritis Peripheral neuropathy UTI (urinary tract infection) Frequent urinary tract infections, with last culture growing out Pseudomonas. Surgical History Surgical History History of colon resection With colostomy secondary to complications from radiation therapy, 2015. History of resection of liver In November [address] Jaimes at [facility]. Status post cataract extraction Status post cholecystectomy 2005. Status post hysterectomy Status post total bilateral knee replacement Status post tubal ligation Family History Family History Father Family history of heart disease in male family member before age 55 Family history of diabetes mellitus in first degree relative Family history of coronary artery disease Family history of congestive heart failure Hypertension Sibling Family history of diabetes mellitus in first degree relative Other Diabetes mellitus Family history of malignant neoplasm Family history of mental disorder Social History Social Hi
[2019-06-05] MEDS: IPRATROPIUM BR 0.02% INH SOLN 0.5 MG/2.5 ML VIAL INHALATION ×2 (11:52→15:45)
[2019-06-05] MEDS: ALBUTEROL SULFATE NEB 2.5 MG/0.5 ML INH INHALATION ×2 (11:52→15:45)
[2019-06-05 12:17] LABS: Basophils Percent Auto 0.7 % (0.2-1.2); Eosinophils Absolute Auto 0.1 K/mm3 (0-0.3); Hematocrit 39.2 % (37.0-47.0); Hemoglobin 12.6 g/dL (12.0-15.0); Immature Granulocyte Absolute 0.01 K/mm3 (0.00-0.031); Immature Granulocyte Percent A 0.2 % (0-0.5); Lymphocytes Absolute Auto 1.82 K/mm3 (0.9-3.2); Lymphocytes Percent Auto 29.8 % (18.3-44.2); Mean Corpuscular HGB Conc 32.1 g/dl (32-36); Mean Corpuscular Hemoglobin 27.4 pg (26-34); Mean Corpuscular Volume 85.2 fl (80-100); Mean Platelet Volume 9.3 fl (7.4-10.4); Monocytes Absolute Auto 0.6 K/mm3 (0.1-0.6); Monocytes Percent Auto 10.1 % (2.6-8.5); Neutrophils Absolute Auto 3.5 K/mm3 (1.3-6.7); Neutrophils Percent Auto 57.2 % (45.5-73.1); Platelet Count Result 216 k/mm3 (150-375); Red Cell Distribution Width 12.8 % (11.5-14.5); White Blood Count 6.1 K/mm3 (4.5-10.0)
[2019-06-05 12:30] LABS: D Dimer 3.52 ug/mL (<0.48)
[2019-06-05 12:31] LABS: Alanine Aminotransferase 13 U/L (4-35); Albumin Level 3.6 g/dL (3.5-5.1); Alkaline Phosphatase 115 U/L (38-126); Aspartate Amino Transferase 32 U/L (14-36); Bilirubin,Total 0.4 mg/dL (0.2-1.3); Blood Urea Nitrogen 11 mg/dL (7-17); Calcium 8.7 mg/dL (8.4-10.2); Carbon Dioxide 28 mmol/L (22-30); Chloride 105 mmol/L (98-107); Estimated CRCL calculation 53 ml/min; Estimated Glomerular Filt Rate > 60; Glucose 121 mg/dL (65-105); Potassium 4.2 mmol/L (3.4-5.0); Sodium 137 mmol/L (137-145)
--- NOTE | 2019-06-05 14:53 | PCCCNOTE ---
Spoke with patient at bedside regarding her current stay in the ED. Noted that she has an admission order for developing pna. Pt states that Home Health has been unable to follow up since her admission last week dt patient having a cough. Pt does not want to burden family members by exposing them to what she has but, after providing examples in which they can assist her without being exposed, does admit they would be able to orange picker machine operator her prescriptions and orange picker machine operator groceries for her. Pt expressed concern that she does not have transportation home. Reassured pt that this department could provide a cab voucher in this instance. Pt states that she would be comfortable going home if she were not admitted to the hospital
[2019-06-05] MEDS: DIGOXIN INJ 250 MCG/ML 2 ML AMP (*BKC) IV PUSH (15:32)
--- NOTE | 2019-06-05 15:35 | PC.NURSE ---
Pt. O2 increased from 2L NC to 4L NC. Pt. was 85% on 4L NC, pale, diaphoretic. Pt. placed on 15L NRB. O2 saturation 96%. EDP notified.
[2019-06-05 15:39] LABS: Alveolar/Arterial O2 Gradient 528.1 mmHg; Base Excess ABG -7.1 mEq/l (+/-2.0); Fractional Inspired Oxygen 100 %; Oxygen Saturation ABG 98.6 % (95.0-100.0); Oxyhemoglobin 97.7 % THb (90.0-100.0); PCO2 ABG 40.3 mmHg (35.0-45.0); PO2 ABG 144.6 mmHg (80.0-100.0); PO2 FiO2 Ratio Arterial Blood 1.45 %; Total Hemoglobin 15.1 g/dL (12.0-18.0); pH ABG 7.291 (7.350-7.450)
[2019-06-05 15:41] LABS: Device NON-REBREATHER MASK; Modified Allen's Test Pass; Site Drawn LEFT RADIAL
--- NOTE | 2019-06-05 15:41 | PC.NURSE ---
pt started on rocephin, 30 secs later c/o of being sob. pt anxious at that time, pale and diaphoretic provider asked to come to room and assess the pt. rocephin stopped, ekg ordered and given to provider placed on 2l o2 nc
[2019-06-05 16:09] LABS: Lactic Acid Reflex 1.1 mmol/L (0.7-2.1)
[2019-06-05 16:21] LABS: Troponin I 0.029 ng/mL (0.000-0.034)
--- NOTE | 2019-06-05 16:39 | ECG_ITS ---
Measurements Intervals [place] Rate: 145 P: [place]: 0 QRS: -24 QRSD: 78 T: 69 QT: 277 QTc: 431 Interpretive Statements MULTIFOCAL ATRIAL TACHYCARDIA ATRIAL PREMATURE COMPLEXES ABNORMAL ECG Electronically Signed On 06-06-2019 7:35:41 CDT by Alexandru Patel D.O.
[2019-06-05] MEDS: LORAZEPAM INJ 2 MG/ML VIAL 1 MG IV PUSH (17:44)
[2019-06-05] MEDS: ONDANSETRON INJ 4 MG/2 ML VIAL (17:44)
--- NOTE | 2019-06-05 18:24 | ADMGEN ---
This patient, Amy Underwood, was admitted to IMU Room 206-02. Patient/family oriented to hospital policies and general routines including ID bracelet, bed and alarms, visiting hours, pain management, procedures, bathroom and other care routines, personal items, smoking policy, room service/diet, and visiting hours. Valuables list has been completed. Information on how to activate the Rapid Response Team has been discussed. Patient/Family are encouraged to report perceived risks to care and to ask questions if they do not understand what they are told or what they should do.
[2019-06-05 20:47] LABS: Troponin I 0.166 ng/mL (0.000-0.034)
--- NOTE | 2019-06-05 21:00 | PM.IMHP ---
H&P: HPI History of Present Illness Chief complaint: Fever and cough. Narrative: Amy Underwood is a 78-year-old female cancer in 1984, cholangiocarcinoma status post resection in November 2016, hypertension, and several other comorbidities who presented to the emergency department earlier this morning via EMS from home for evaluation of cough and fever. Patient is known to myself and the hospitalist service as I admitted her to the hospital 05/26/2019 after she came in with frequent falls. She was found to be dehydrated with urinary tract infection and was admitted for a couple of days for IV fluid rehydration and IV antibiotics. She declined rehab placement at that time, but was discharged home with home health 2 days thereafter. Almost as soon as she arrived home, she developed a cough which has been productive of a thick green phlegm. She has also been running fevers up to a T-max of 102? just yesterday. Unfortunately, home health has not yet made it to the home due to the patient's fever and cough. Additionally she reports nausea and vomiting, with 2 episodes of emesis today. Her last meal consisted of 2 crackers and orange sure overt yesterday evening. She has been able to hold down some water today, however. She has noticed an increase in output from her ostomy, but it has been formed and she has not noticed loose stools. Additionally, she has had mild but diffuse lower abdominal cramping, and she is concerned that her urine infection may be coming back. She has a neurogenic bladder from previous pelvic radiation, and thus is always incontinent. She has not noticed dysuria or malodorous urine, however. In the emergency department, she suddenly became short of breath and went into atrial fibrillation with rapid ventricular response for which she was given digoxin 250 micrograms. Time she reports feeling extremely hot with racing heart and dizziness ?and felt like I might .? She has since converted to a normal sinus rhythm. She has no history of atrial fibrillation or cardiac disease. She has not had chest pain. She is not having shortness of breath at this time, and reports feeling much better. No recent travel or known history of COVID exposure. Review of Systems Review of Systems: Narrative: Twelve systems were reviewed with pertinent positives and negatives as per HPI. She has been running fevers since Sunday as detailed in HPI. She has had a mild headache and aural fullness. She denies sinus congestion, rhinorrhea, otalgia, and odynophagia. No exertional chest pain. She denies pleuritic pain. No orthopnea or PND. She occasionally has mild lower extremity edema, which is unchanged. She denies hematemesis, melena, and hematochezia. No dysphagia or concerns for aspiration. Except as documented, all other systems were reviewed and are negative. [facility] Past Medical History Medical History Cervical cancer In 1988. She did receive radiation implants with subsequent damage to both the bladder and the colon. In 2005 she underwent partial colon resection with colostomy. She also has neurogenic bladder and has intermittently had indwelling Vasquez catheters. Cholangiocarcinoma Status post resection and November [address] Melgar, hepatobiliary specialist at [facility]. Lymph node biopsied in November 2018 was positive for metastatic disease, but she has declined further treatment. Chronic anemia Degenerative disc disease Depression with anxiety GERD (gastroesophageal reflux disease) History of kidney stones Hyperlipidemia Hypertension Migraine headache Osteoarthritis Peripheral neuropathy UTI (urinary tract infection) Frequent urinary tract infections, with last culture growing out Pseudomonas. Surgical History Surgical History History of colon resection With colostomy secondary to complications from radiation ther
[2019-06-05 23:28] LABS: Troponin I 0.202 ng/mL (0.000-0.034)
[2019-06-06] VITALS (13 sets, daily range): BP systolic 111–153; BP diastolic 51–66; PULSE 68–99; RESP 18–20; TEMP 36.1–36.9; O2SAT 91–99
[2019-06-06 00:10] LABS: Alveolar/Arterial O2 Gradient 88.3 mmHg; Base Excess ABG -0.5 mEq/l (+/-2.0); Carboxyhemoglobin 0.3 % THb (0-2.0); Fractional Inspired Oxygen 28 %; HCO3 ABG 23.2 mEq/l (22.0-26.0); Methemoglobin ABG 0.4 %THb (0-1.5); Oxygen Content ABG 18.3 %vol (16.0-22.0); Oxygen Saturation ABG 94.6 % (95.0-100.0); Oxyhemoglobin 93.8 % THb (90.0-100.0); PCO2 ABG 35.3 mmHg (35.0-45.0); PO2 ABG 69.7 mmHg (80.0-100.0); PO2 FiO2 Ratio Arterial Blood 2.49 %; Reduced Hemoglobin 5.5 %THb (0-5.0); Total Hemoglobin 13.9 g/dL (12.0-18.0); pH ABG 7.435 (7.350-7.450)
[2019-06-06 00:12] LABS: Device NASAL CANNULA; Modified Allen's Test Pass; Site Drawn RIGHT RADIAL
[2019-06-06] MEDS: LEVALBUTEROL HFA (*SP) 15 GM INHALER 2 PUFF INHALATION ×4 (01:48→20:58)
[2019-06-06] MEDS: PERFLUTREN LIPID MICROSPHERES 1.5 ML VIAL DILUTED TO 10 ML TOTAL VOLUME IV PUSH (08:28)
[2019-06-06 09:26] LABS: Basophils Absolute Auto 0.1 K/mm3 (0.0-0.1); Basophils Percent Auto 0.6 % (0.2-1.2); Eosinophils Absolute Auto 0.1 K/mm3 (0-0.3); Hemoglobin 13.1 g/dL (12.0-15.0); Immature Granulocyte Absolute 0.05 K/mm3 (0.00-0.031); Immature Granulocyte Percent A 0.4 % (0-0.5); Lymphocytes Absolute Auto 3.16 K/mm3 (0.9-3.2); Lymphocytes Percent Auto 25.5 % (18.3-44.2); Mean Corpuscular HGB Conc 32.8 g/dl (32-36); Mean Corpuscular Hemoglobin 27.5 pg (26-34); Mean Platelet Volume 9.6 fl (7.4-10.4); Monocytes Absolute Auto 0.8 K/mm3 (0.1-0.6); Monocytes Percent Auto 6.5 % (2.6-8.5); Neutrophils Absolute Auto 8.2 K/mm3 (1.3-6.7); Platelet Count Result 254 k/mm3 (150-375); Red Blood Count 4.76 M/mm3 (4.2-5.4); White Blood Count 12.4 K/mm3 (4.5-10.0)
[2019-06-06 09:39] LABS: Blood Urea Nitrogen 21 mg/dL (7-17); Calcium 8.2 mg/dL (8.4-10.2); Carbon Dioxide 23 mmol/L (22-30); Chloride 101 mmol/L (98-107); Estimated CRCL calculation 25 ml/min; Estimated Glomerular Filt Rate 24; Glucose 155 mg/dL (65-105); Potassium 3.4 mmol/L (3.4-5.0); Sodium 135 mmol/L (137-145)
[2019-06-06] MEDS: VERAPAMIL HCL 180 MG TABLET ER PO (10:03)
[2019-06-06] MEDS: GABAPENTIN 400 MG CAPSULE PO ×2 (10:03→17:11)
--- NOTE | 2019-06-06 11:05 | PM.CNCAR ---
Assessment and Plan Additional Plan Episode of multifocal atrial tachycardia which occurred yesterday while the patient was febrile coughing and having respiratory difficulty in the emergency department. I do not agree with the diagnosis of atrial fibrillation and therefore I do not recommend starting treatment for this. As there is no apparent a distal cardiac problem it is not my plan/intention to continue to follow this lady during the hospital stay. If you need me to see her for some other reason please let me know Tim Lay MD [facility] History of Present Illness History of Present Illness Consult date/time: Date of service: 06/06/19 11:05 Consult reason: atrial fibrillation Reason For Visit: Fever and cough. Narrative: This is a 78-year-old woman with without any previous history of cardiac problems I am seeing her at the request of the hospitalist's this morning because of atrial fib with RVR. The patient was seen and her entire chart an ECGs have been reviewed. The patient does not have any prior history of cardiac problems in came to the emergency room yesterday complaining of coughing and a fever. She was coughing productive sputum of green [place] material and a reports that she lives at home alone and has monitored her temperature and has seen temperatures as high as 102? F this setting she came to the emergency room. She was not felt to be at risk for COVID presumably because she has not traveled out of the area. While she was in the emergency room being evaluated she suddenly became tachycardic the rhythm was interpreted as atrial fib with RVR she was given some IV digoxin and admitted to the IMU for further evaluation and management she is receiving antibiotics it looks 6 she is currently afebrile she has developed a leukocytosis today but does not appear to be in any other distress. My review of the electrocardiogram as well as Dr. Patel's official reading however would not lead to the diagnosis of atrial fibrillation. She was tachycardic and irregular but in MA T, not atrial fibrillation. An echocardiogram was done which was also given to Dr Patel to interpret which did not show any serious cardiac structural/functional abnormalities. Had a long discussion with the patient about the nature of atrial fibrillation and the concerns that it poses but I do not believe at this time that she should be given that diagnosis because we do not see any ECG/rhythm strips that demonstrate krystal atrial fib. When she is short of breath febrile and struggling to breathe multifocal atrial tachycardia is not on commonly seen. She does not report any known history of chronic lung disease. Review of Systems Constitutional: Constitutional: Reports lethargy and Reports weakness Eyes: Eyes: Reports no additional eye complaints ENT: Reports system reviewed and no additional complaints, except as documented Cardiovascular: Cardiovascular: Reports as per HPI and Reports palpitations Respiratory: Respiratory: Reports cough and Reports dyspnea Gastrointestinal: Gastrointestinal: Reports no additional gastrointestinal complaints Musculoskeletal: Musculoskeletal: Reports no additional musculoskeletal complaints Neurologic: Reports abnormal gait Comments: Unsteady gait with occasional falling Endocrine: Endocrine: Reports no additional endocrine complaints Hematologic/Lymphatic: Hematologic/Lymphatic: Reports no additional hematologic/lymphatic complaints Allergic/Immunologic: Allergic/Immunologic: Reports no additional allergic/immunologic complaints [facility] Past Medical History Medical History Cervical cancer In 1988. She did receive radiation implants with subsequent damage to both the bladder and the colon. In 2005 she underwent partial colon resection with colostomy. She also has neurogenic bladder and has intermittently had indwelling Vasquez catheters. Cholangiocarcinoma Status pos
[2019-06-06] MEDS: CITALOPRAM HYDROBROMIDE 20 MG TABLET 40 MG PO (12:39)
--- NOTE | 2019-06-06 12:53 | PM.IMPN ---
Progress Note: A&P Assessment and Plan (1) Multifocal atrial tachycardia: Code(s): I47.1 - Supraventricular tachycardia Status: Acute Assessment and Plan: Meigs had AFib/RVR in ER adn Digoxin given. EKG however more consistent with MAT. Cardiology consult obtained. Echo noted. Not felt to have had AFib. Continue tele. (2) ERICA (acute kidney injury): Code(s): N17.9 - Acute kidney failure, unspecified Status: Acute Assessment and Plan: Cr normal at baseline and was 0.9 on admission. Henrik did have possible allergic reaction with the Rocephin. Consider AIN. Had contrast yesterday but too soon for contrast induced kidney injury. No peripheral eosinophilia. Check urine eos. Add NS. Nephrology consult if Cr worsens. Prednisone for her wheezing may help. Check TCK, UA Renal US showing right renal atrophy. Lab work pending. (3) Elevated troponin: Code(s): R79.89 - Other specified abnormal findings of blood chemistry Status: Acute Assessment and Plan: Troponin trended upward to 0.2. Echo showing diastolic dysfunction grade 1 with EF of 70%. Could be related to the tachycardia. Repeat x 1 today. (4) Pneumonia of right upper lobe due to infectious organism: Code(s): J18.9 - Pneumonia, unspecified organism Status: Acute Assessment and Plan: CXR clear but CTA of the chest showing mild airspace disease upper lobe consistent with bronchiolitis versus pneumonia. She has been started on doxycycline. She potentially had an issue with the Rocephin in the emergency room. She is allergic to Levaquin. Continue nebulizer treatments. Will add prednisone. (5) Hypertension: Code(s): I10 - Essential (primary) hypertension Status: Acute Assessment and Plan: Blood pressure reviewed on 06/06/2019. Blood pressure well controlled. Verapamil has been resumed. Continue to monitor. Hold lisinopril given the ERICA. 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 She had recurrence with positive lymph node biopsy last year. She has opted not to proceed with further treatment. She will consider hospice when the time comes. Subjective Date/time seen: 06/06/19 12:53 Interval history: 78yo female here for cough and fever. Patient feels 'nervous' today. Normally she is on Xanax this is been held. Denies chest pain or shortness of breath. Still has the cough but this is improved. No further nausea or vomiting. She is eating okay. No odynophagia or dysphagia. Exam Narrative: Exam Narrative: AF 141/51 Gen - NARD sitting up in bed currently on 1 L O2 Chest -coarse breath sounds with expiratory wheezing. CV - RRR S1/S2; telemetry showing sinus arrhythmia and PACs. Abd - Soft, NT/ND, Positive BS. Colostomy in the left side of the abdomen Ext -trace pedal edema Psych - Nml mood and affect. Alert and appropriate Skin - Warm and dry Objective Data Vital Signs Vital Signs: Vital Signs - 24 hr 06/05/19 15:00 06/05/19 15:15 06/05/19 15:25 Temperature Pulse Rate 130 H Respiratory Rate Blood Pressure Pulse Oximetry 88 L 85 L 06/05/19 15:27 06/05/19 15:32 06/05/19 15:40 Temperature Pulse Rate 137 H 105 H Respiratory Rate 31 H Blood Pressure 111/96 H Pulse Oximetry 96 98 06/05/19 15:44 06/05/19 15:56 06/05/19 16:15 Temperature Pulse Rate 99 91 98 Respiratory Rate 24 H 20 Blood Pressure Pulse Oximetry 06/05/19 18:00 06/05/19 18:04 06/05/19 18:25 Temperature 98.1 F Pulse Rate 96 99 94 Respiratory Rate 16 18 Blood Pressure 132/61 125/78 Pulse Oximetry 99 92 06/05/19 20:00 06/06/19 00:00 06/06/19 04:00 Temperature 97.5 F L 98 F 98 F Pulse Rate 91 87 81 Respiratory Rate 18 18 18 Blood Pressure 113
[2019-06-06] MEDS: ACETAMINOPHEN 325 MG TABLET 650 MG PO (17:10)
[2019-06-06] MEDS: buPROPion HCL XL (24 HR) 150 MG TABCR PO (17:11)
[2019-06-06 18:05] LABS: Blood Urea Nitrogen 27 mg/dL (7-17); Calcium 8.2 mg/dL (8.4-10.2); Carbon Dioxide 21 mmol/L (22-30); Chloride 100 mmol/L (98-107); Creatine Kinase 89 U/L (30-135); Estimated CRCL calculation 22 ml/min; Estimated Glomerular Filt Rate 21; Glucose 137 mg/dL (65-105); Potassium 3.7 mmol/L (3.4-5.0); Sodium 132 mmol/L (137-145)
[2019-06-06 18:07] LABS: CRP 2.8 mg/dL (<1.0)
[2019-06-06 18:11] LABS: Complement C3 123 mg/dL (88-165)
[2019-06-06 18:18] LABS: Troponin I 0.085 ng/mL (0.000-0.034)
[2019-06-06] MEDS: SODIUM CHLORIDE 0.9% IV 1,000 ML 100 ML IV CONT (21:09)
[2019-06-06] MEDS: ALPRAZOLAM 0.5 MG TABLET PO (21:10)
[2019-06-06 22:10] LABS: Add Urine Microscopic? YES; Appearance Urine Cloudy (Clear); Bacteria Urine Trace /hpf; Bilirubin Urine Negative (Negative); Blood Urine Negative (Negative); Color Urine Yellow (Yellow); Glucose Urine UA Negative (Negative); Ketones Urine Negative (Negative); Leukocyte Esterase Ur 3+ LEU/UL (Negative); Mucus Urine Few /lpf; Nitrate Urine Negative (Negative); Protein Urine 2+ mg/dL (Negative); Squamous Epithelial Cell Urine Many /hpf (Few); Urobilinogen Urine Negative mg/dL (<2.0); WBC Urine 31-50 /hpf
[2019-06-06 22:11] LABS: Specific Grav Ur 1.041 (1.001-1.035)
[2019-06-06 22:11] LABS: Sodium Urine Random 10 meq/L
--- NOTE | 2019-06-06 23:59 | ECHO_ITS ---
Patient Info Name: Amy Underwood Age: 78 years : 1940 Gender: Female Ht: 63 in Wt: 239 lbs BSA: 2.26 m2 HR: 72 bpm BP: 122 / 64 mmHg Technical Quality: Fair Exam Date: 06/06/2019 7:28 AM Exam Location: [facility] Pulmonary Patient Status: Inpatient Admit Date: 06/05/2019 Staff Ordering Physician: Cori Bailon PA-C Distribution Spec: Bigg Xiao RDCS, RT Attending Provider: Jamar Browning MD Referring Physician: Adamaris ALLEN; Exam Type: CA echo dop color flow w con Study Info Indications I48.1 - Persistent atrial fibrillation Complete two-dimensional, color flow and Doppler transthoracic echocardiogram is performed with contrast to opacify the left ventrical and to improve the deliniation of the left ventrical endocarial boarders. Summary 1. Left ventricular chamber dimension is normal. 2. Definity contrast administered improved wall motion interpretation. 3. Left ventricular systolic function is hyperdynamic, estimated at >70%. 4. There is moderately increased left ventricular wall thickness. 5. The left ventricular diastolic function is grade I diastolic dysfunction. 6. E/e' 8 is minimally elevated. 7. The aortic valve is not well visualized. 8. There is mild aortic valve stenosis based on a peak velocity of 151.86 cm/s, mean gradient of 5 mmHg, and aortic valve area of 1.89 cm2. 9. The mitral valve has not well visualized and moderately calcified annulus. Left Ventricle Definity contrast administered improved wall motion interpretation. E/e' 8 is minimally elevated. Left ventricular chamber dimension is normal. Left ventricular systolic function is hyperdynamic, estimated at >70%. There is moderately increased left ventricular wall thickness. The left ventricular diastolic function is grade I diastolic dysfunction. Right Ventricle Right ventricular chamber dimension is normal. Right ventricular systolic function is normal. Left Atria Left atrial chamber dimension is normal. Right Atria Right atrial chamber dimension is normal. Aortic Valve There is mild aortic valve stenosis based on a peak velocity of 151.86 cm/s, mean gradient of 5 mmHg, and aortic valve area of 1.89 cm2. Cannot determine number of aortic valve leaflets. The aortic valve is not well visualized. There is no aortic valve regurgitation. Pulmonic Valve The pulmonic valve is not well visualized. Mitral Valve The mitral valve has not well visualized and moderately calcified annulus. There is no mitral valve stenosis. There is no mitral valve regurgitation. Tricuspid Valve The tricuspid valve leaflets are not well visualized. There is no tricuspid valve regurgitation. Pericardium/Pleural There is no pericardial effusion. Inferior Vena Cava Normal inferior vena cava with >50% collapse upon inspiration consistent with normal right atrial pressure, 5 mmHg. Aorta The aortic root size at the sinus of Valsalva is not well visualized. Left Ventricular Outflow Tract Name Value Normal LVOT 2D LVOT Diameter 1.90 cm LVOT Doppler LVOT Peak Gradient 4 mmHg LVOT Mean Gradient
[2019-06-07] VITALS (14 sets, daily range): BP systolic 121–152; BP diastolic 51–74; PULSE 68–90; RESP 14–20; TEMP 36.1–36.7; O2SAT 91–95
[2019-06-07] MEDS: LEVALBUTEROL HFA (*SP) 15 GM INHALER 2 PUFF INHALATION ×4 (02:28→19:42)
[2019-06-07 05:13] LABS: Basophils Percent Auto 0.4 % (0.2-1.2); Eosinophils Absolute Auto 0.3 K/mm3 (0-0.3); Eosinophils Percent Auto 2.9 % (0-4.4); Hematocrit 35.8 % (37.0-47.0); Hemoglobin 11.5 g/dL (12.0-15.0); Immature Granulocyte Absolute 0.05 K/mm3 (0.00-0.031); Immature Granulocyte Percent A 0.5 % (0-0.5); Lymphocytes Percent Auto 28.7 % (18.3-44.2); Mean Corpuscular HGB Conc 32.1 g/dl (32-36); Mean Corpuscular Hemoglobin 27.4 pg (26-34); Mean Corpuscular Volume 85.2 fl (80-100); Monocytes Absolute Auto 0.7 K/mm3 (0.1-0.6); Neutrophils Absolute Auto 5.7 K/mm3 (1.3-6.7); Neutrophils Percent Auto 60.5 % (45.5-73.1); Platelet Count Result 219 k/mm3 (150-375); Red Cell Distribution Width 13.2 % (11.5-14.5); White Blood Count 9.4 K/mm3 (4.5-10.0)
[2019-06-07 06:17] LABS: Alanine Aminotransferase 12 U/L (4-35); Albumin Level 3.2 g/dL (3.5-5.1); Alkaline Phosphatase 91 U/L (38-126); Aspartate Amino Transferase 37 U/L (14-36); Bilirubin,Total 0.4 mg/dL (0.2-1.3); Blood Urea Nitrogen 29 mg/dL (7-17); Calcium 7.8 mg/dL (8.4-10.2); Carbon Dioxide 21 mmol/L (22-30); Chloride 100 mmol/L (98-107); Estimated CRCL calculation 20 ml/min; Estimated Glomerular Filt Rate 19; Glucose 114 mg/dL (65-105); Magnesium 1.7 mg/dL (1.6-2.3); Phosphorus 4.1 mg/dL (2.5-4.5); Potassium 3.6 mmol/L (3.4-5.0); Sodium 132 mmol/L (137-145)
[2019-06-07] MEDS: SODIUM CHLORIDE 0.9% IV 1,000 ML 100 ML IV CONT ×2 (07:01→17:36)
[2019-06-07] MEDS: ACETAMINOPHEN 325 MG TABLET 650 MG PO (07:02)
[2019-06-07] MEDS: GABAPENTIN 400 MG CAPSULE PO ×2 (10:00→17:38)
[2019-06-07] MEDS: VERAPAMIL HCL 180 MG TABLET ER PO (10:00)
[2019-06-07] MEDS: CITALOPRAM HYDROBROMIDE 20 MG TABLET 40 MG PO (10:00)
--- NOTE | 2019-06-07 11:40 | PM.IMPN ---
Progress Note: A&P Assessment and Plan (1) ERICA (acute kidney injury): Code(s): N17.9 - Acute kidney failure, unspecified Status: Acute Assessment and Plan: Cr normal at baseline and was 0.9 on admission. Patient did have possible allergic reaction with the Rocephin. Consider AIN. Had contrast on admission but seems too soon for contrast induced kidney injury. No peripheral eosinophilia. Has small scarred bladder from XRT therapy. Cr worse again with Cr 2.5. Urine eos pending. TCK normal. Complemetns normal as well. UA note. Follow up on UCx results. Continue NS. Nephrology consult today. Prednisone for her wheezing but may help ERICA. (2) Pneumonia of right upper lobe due to infectious organism: Code(s): J18.9 - Pneumonia, unspecified organism Status: Acute Assessment and Plan: CXR clear but CTA of the chest showing mild airspace disease upper lobe consistent with bronchiolitis versus pneumonia. She has been started on doxycycline. She potentially had an issue with the Rocephin in the emergency room. She is allergic to Levaquin. Started on Prednisone for the wheezing. Still wheezing but she feels better and improved air exchange. Continue nebulizer treatments and prednisone. PT/OT. (3) Multifocal atrial tachycardia: Code(s): I47.1 - Supraventricular tachycardia Status: Acute Assessment and Plan: [place] had AFib/RVR in ER and Digoxin given. EKG however more consistent with MAT. Cardiology consult obtained and they felt patient did not have AFib. Echo showing EF 70% with diastolic dysfunction Grade 1. (4) Elevated troponin: Code(s): R79.89 - Other specified abnormal findings of blood chemistry Status: Acute Assessment and Plan: Troponin trended upward to 0.2. Echo showing diastolic dysfunction grade 1 with EF of 70%. Could be related to the tachycardia. Trending down on repeat (5) Hypertension: Qualifiers: Hypertension type: essential hypertension Qualified Code(s): I10 - Essential (primary) hypertension Code(s): I10 - Essential (primary) hypertension Status: Acute Assessment and Plan: Blood pressure reviewed on 06/07/2019. Blood pressure well controlled. Verapamil has been resumed. Continue to monitor. Continue to hold lisinopril given the renal failure. 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 She had recurrence with positive lymph node biopsy last year. She has opted not to proceed with further treatment. She will consider hospice when the time comes. Subjective Date/time seen: 06/07/19 11:40 Interval history: 78yo female here for cough and fever. Patient feels better today. Cough is minimal. No n/v. No CP or SOB. UOP has decreased she feels. Exam Narrative: Exam Narrative: AF 149/51 Gen - NARD Chest - diffuse expiratory wheezing with improved air excange. Nml RR CV - RRR S1/S2; telemetry showing PACs. Abd - Soft, NT/ND, Positive BS. Colostomy in the left side of the abdomen with no stool Ext - no pedal edema Psych - Nml mood and affect. Alert and appropriate Skin - Warm and dry Objective Data Vital Signs Vital Signs: Vital Signs - 24 hr 06/06/19 12:00 06/06/19 12:21 06/06/19 14:00 Temperature 98.5 F 98.5 F Pulse Rate 80 68 84 Respiratory Rate 18 18 Blood Pressure 141/51 H 141/51 H Pulse Oximetry 93 93 06/06/19 16:00 06/06/19 18:00 06/06/19 20:00 Temperature 97 F L 97.8 F Pulse Rate 83 83 82 Respiratory Rate 18 18 Blood Pressure 141/63 H 119/55 L Pulse Oximetry 93 93 06/06/19 22:00 06/07/19 00:00 06/07/19 02:00 Temperature 97 F L Pulse Rate 81 90 75 Respiratory Rate 20 Blood Pressure 121/64 Pulse Oximetry 91 06/07/19 03:43 06/07/19 04:00 06/07/19
[2019-06-07] MEDS: predniSONE 20 MG TABLET 60 MG PO (13:43)
[2019-06-07] MEDS: buPROPion HCL XL (24 HR) 150 MG TABCR PO (17:38)
[2019-06-07] MEDS: polyethylene glycoL 3350 17 GM POWD.PACK PO (17:45)
[2019-06-07] MEDS: ALPRAZOLAM 0.5 MG TABLET PO (21:33)
[2019-06-08] VITALS (10 sets, daily range): BP systolic 142–147; BP diastolic 61–87; PULSE 62–81; RESP 13–19; TEMP 36.2–36.9; O2SAT 92–94
[2019-06-08] MEDS: LEVALBUTEROL HFA (*SP) 15 GM INHALER 2 PUFF INHALATION ×3 (02:33→19:03)
[2019-06-08] MEDS: ACETAMINOPHEN 325 MG TABLET 650 MG PO (06:11)
[2019-06-08] MEDS: SODIUM CHLORIDE 0.9% IV 1,000 ML 100 ML IV CONT (06:14)
[2019-06-08 07:18] LABS: Albumin Level 3.2 g/dL (3.5-5.1); Blood Urea Nitrogen 29 mg/dL (7-17); Calcium 8.5 mg/dL (8.4-10.2); Carbon Dioxide 21 mmol/L (22-30); Chloride 107 mmol/L (98-107); Estimated CRCL calculation 36 ml/min; Estimated Glomerular Filt Rate 36; Glucose 173 mg/dL (65-105); Magnesium 1.7 mg/dL (1.6-2.3); Phosphorus 3.5 mg/dL (2.5-4.5); Sodium 133 mmol/L (137-145)
[2019-06-08 08:57] LABS: Basophils Percent Auto 0.1 % (0.2-1.2); Hematocrit 34.1 % (37.0-47.0); Hemoglobin 10.9 g/dL (12.0-15.0); Immature Granulocyte Absolute 0.05 K/mm3 (0.00-0.031); Immature Granulocyte Percent A 0.7 % (0-0.5); Lymphocytes Absolute Auto 0.81 K/mm3 (0.9-3.2); Lymphocytes Percent Auto 11.6 % (18.3-44.2); Mean Corpuscular Hemoglobin 27.1 pg (26-34); Mean Corpuscular Volume 84.8 fl (80-100); Mean Platelet Volume 9.9 fl (7.4-10.4); Monocytes Absolute Auto 0.3 K/mm3 (0.1-0.6); Neutrophils Absolute Auto 5.8 K/mm3 (1.3-6.7); Neutrophils Percent Auto 83.6 % (45.5-73.1); Platelet Count Result 194 k/mm3 (150-375); Red Blood Count 4.02 M/mm3 (4.2-5.4); Red Cell Distribution Width 12.9 % (11.5-14.5)
[2019-06-08] MEDS: polyethylene glycoL 3350 17 GM POWD.PACK PO ×2 (08:58→17:05)
[2019-06-08] MEDS: GABAPENTIN 400 MG CAPSULE PO ×2 (08:59→17:05)
[2019-06-08] MEDS: predniSONE 20 MG TABLET 60 MG PO (08:59)
[2019-06-08] MEDS: VERAPAMIL HCL 180 MG TABLET ER PO (08:59)
[2019-06-08] MEDS: CITALOPRAM HYDROBROMIDE 20 MG TABLET 40 MG PO (08:59)
--- NOTE | 2019-06-08 09:28 | PM.IMPN ---
Progress Note: A&P Assessment and Plan (1) ERICA (acute kidney injury): Code(s): N17.9 - Acute kidney failure, unspecified Status: Acute Assessment and Plan: Cr normal at baseline and was 0.9 on admission. Patient did have possible allergic reaction with the Rocephin. Consider AIN. Had contrast on admission but seems too soon for contrast induced kidney injury. No peripheral eosinophilia. TCK normal. Complemetns normal as well. UA note. Urine eos pending. Has small scarred bladder from XRT therapy. Cr better today with Cr 1.4 with improved UOP. Will stop IVF. UA noted but a lot of squamous cells and only 31 WBC in UA. UCx growing Enterococcus and Pseudomonas but may be contaminate. Will repeat UA with UCx and hold on treatment. Do not think this resulted in her ERICA. (2) Pneumonia of right upper lobe due to infectious organism: Code(s): J18.9 - Pneumonia, unspecified organism Status: Acute Assessment and Plan: CXR clear but CTA of the chest showing mild airspace disease upper lobe consistent with bronchiolitis versus pneumonia. She has been started on doxycycline. She potentially had an issue with the Rocephin in the emergency room. She has joint pain with Levaquin. Started on Prednisone for the wheezing with improvement. Continue nebulizer treatments and prednisone. Continue PT/OT. (3) Multifocal atrial tachycardia: Code(s): I47.1 - Supraventricular tachycardia Status: Acute Assessment and Plan: [place] had AFib/RVR in ER and Digoxin given. EKG however more consistent with MAT. Cardiology consult obtained and they felt patient did not have AFib. Echo showing EF 70% with diastolic dysfunction Grade 1. No recurrence. Okay to stop tele. (4) Elevated troponin: Code(s): R79.89 - Other specified abnormal findings of blood chemistry Status: Acute Assessment and Plan: Troponin trended upward to 0.2. Echo showing diastolic dysfunction grade 1 with EF of 70%. Could be related to the tachycardia. Trending down on repeat (5) Hypertension: Qualifiers: Hypertension type: essential hypertension Qualified Code(s): I10 - Essential (primary) hypertension Code(s): I10 - Essential (primary) hypertension Status: Acute Assessment and Plan: Blood pressure reviewed on 06/08/2019. Blood pressure well controlled. Verapamil has been resumed. Continue to monitor. Continue to hold lisinopril given the renal failure. 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 She had recurrence with positive lymph node biopsy last year. She has opted not to proceed with further treatment. She will consider hospice when the time comes. Subjective Date/time seen: 06/08/19 09:28 Interval history: 78yo female here for cough and fever. Patient feels well today. as up ambulating in the room yesterday. No CP or SOB. Eating okay. Improved UOP. States that she does not have an allergy to Cipro and never has. No n/v. No BM since admission. +flatus in the bag Exam Narrative: Exam Narrative: AF 142/72 Gen - NARD lying sei-recumbent in bed Chest - good air exchange. A few scattered wheezes. Bibasilar crackles that improve with cough CV - RRR S1/S2; telemetry showing no significnat dysrhytmia. Abd - Soft, NT/ND, Positive BS. Colostomy in the left side of the abdomen with no stool Ext - trace pedal edema Psych - Nml mood and affect. In good spirits Skin - Warm and dry Objective Data Vital Signs Vital Signs: Vital Signs - 24 hr 06/07/19 10:00 06/07/19 12:00 06/07/19 14:00 Temperature 97.4 F L 97.2 F L Pulse Rate 71 78 70 Respiratory Rate 20 14 Blood Pressure 131/74 131/66 Pulse Oximetry 94 95 06/07/19 16:00 06/07/19 19:46 06/07/19 20:00
--- NOTE | 2019-06-08 11:10 | PM.CNNEP ---
Assessment and Plan Assessment and plan (1) ERICA (acute kidney injury): Code(s): N17.9 - Acute kidney failure, unspecified Status: Acute Assessment and Plan: The patient has acute kidney injury. Most likely this is due to that spell with the Ceftriaxone. The sudden this of the rise of the creatinine suggests more of a hemodynamic issue. Possibly her systemic response to the Ceftriaxone lead to 3rd spacing and pre renal azotemia. The creatinine is 1.4 today suggesting that that systemic response is abating. In addition her erythema is better and overall the patient feels much better. She had an ultrasound which showed that 1 kidney is a little smaller than the other. Normally the right kidney is smaller than the left kidney because of the presence of the liver. They were equal in size back in 2012. Possibly there is some crusher and binder operator variability. Her baseline creatinine is normal at 0.9. At this point I think we can hold off on the IV fluids and continue treatment of her pneumonia. We will check another creatinine tomorrow. (2) Pneumonia of right upper lobe due to infectious organism: Code(s): J18.9 - Pneumonia, unspecified organism Status: Acute Assessment and Plan: The patient is on doxycycline (3) Hypertension: Qualifiers: Hypertension type: essential hypertension Qualified Code(s): I10 - Essential (primary) hypertension Code(s): I10 - Essential (primary) hypertension Status: Acute Assessment and Plan: The patient's blood pressure is up and down. We can follow this as the course of the pneumonia goes. 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 She is a DNR History of Present Illness Reason for Consult Consult date: 06/08/19 Chief Complaint Chief complaint: Fever and cough. History of Present Illness Narrative: Amy is a very pleasant 78 year old lady has multiple medical problems including hypertension, cervical cancer status post radiation implant and consequent bowel and bladder incontinence, cholangiocarcinoma which is metastatic and the patient is refusing further treatment, anemia, depression, GERD, kidney stones, hyperlipidemia, hypertension, UTI, migraines, osteoarthritis, peripheral neuropathy. The patient came in to the hospital because of fever and cough. In the ER she was evaluated and has pneumonia. She did not have a fever in the emergency room. She had a CT angio to rule out pulmonary emboli and this was negative. Venous Dopplers were negative. While in the emergency room the patient received a dose of Rocephin. After that she developed nausea, vomiting, significant erythema dizziness, and palpitations. They changed antibiotics in the patient feels better today. On admission her creatinine was 0.9. But then it bert to 2.0 than 2.5 and so renal consultation was requested. The patient has had kidney problems in the past. She had an elevated creatinine in [address] Fishman in the office. Ultrasound was okay at the time and evaluation was negative. She did not follow up because she said she was feeling okay. Recently she has not had any bloody urine, foamy urine, kidney stones, or bladder infections. She does not have swelling. No pain with urination. Review of Systems Constitutional: Constitutional: Reports no additional constitutional complaints Eyes: Eyes: Reports no additional eye complaints ENT: Reports system reviewed and no additional complaints, except as documented Cardiovascular: Cardiovascular: Reports no additional cardiovascular complaints Respiratory: Respiratory: Reports no additional respiratory complaints Gastrointestinal: Gastrointestinal: Reports no additional gastrointestinal complaints Genitourinary: Genitourinary: Reports no additional female genitourina
[2019-06-08 14:31] LABS: Add Urine Microscopic? YES; Appearance Urine Clear (Clear); Bacteria Urine Trace /hpf; Bilirubin Urine Negative (Negative); Blood Urine Negative (Negative); Color Urine Yellow (Yellow); Glucose Urine UA Negative (Negative); Ketones Urine Negative (Negative); Leukocyte Esterase Ur 3+ LEU/UL (Negative); Mucus Urine Rare /lpf; Nitrate Urine Negative (Negative); Protein Urine Negative (Negative); Specific Grav Ur 1.017 (1.001-1.035); Squamous Epithelial Cell Urine Moderate /hpf (Few); Urobilinogen Urine Negative mg/dL (<2.0); WBC Urine 21-30 /hpf
[2019-06-08 14:50] LABS: Creatinine Urine 106.2 mg/dL; Total Protein Urine Random 13 mg/dL
[2019-06-08 14:52] LABS: Sodium Urine Random 6 meq/L
[2019-06-08] MEDS: buPROPion HCL XL (24 HR) 150 MG TABCR PO (17:05)
[2019-06-08] MEDS: ALPRAZOLAM 0.5 MG TABLET PO (21:14)
[2019-06-09 01:28] VITALS: PULSE 69; RESP 18
[2019-06-09] MEDS: LEVALBUTEROL HFA (*SP) 15 GM INHALER 2 PUFF INHALATION ×3 (01:28→14:27)
[2019-06-09 04:00] VITALS: BP 136/60; PULSE 60; RESP 16; TEMP 36.2; O2SAT 93
[2019-06-09 06:45] LABS: Albumin Level 3.5 g/dL (3.5-5.1); Blood Urea Nitrogen 30 mg/dL (7-17); Carbon Dioxide 23 mmol/L (22-30); Chloride 105 mmol/L (98-107); Estimated CRCL calculation 42 ml/min; Estimated Glomerular Filt Rate 43; Glucose 174 mg/dL (65-105); Phosphorus 3.5 mg/dL (2.5-4.5); Potassium 4.3 mmol/L (3.4-5.0); Sodium 135 mmol/L (137-145)
[2019-06-09 08:10] VITALS: BP 130/64; PULSE 60; RESP 18; TEMP 35.9; O2SAT 91
[2019-06-09] MEDS: polyethylene glycoL 3350 17 GM POWD.PACK PO (08:42)
[2019-06-09] MEDS: VERAPAMIL HCL 180 MG TABLET ER PO (08:42)
[2019-06-09] MEDS: CITALOPRAM HYDROBROMIDE 20 MG TABLET 40 MG PO (08:42)
[2019-06-09] MEDS: predniSONE 20 MG TABLET 60 MG PO (08:42)
[2019-06-09] MEDS: GABAPENTIN 400 MG CAPSULE PO (08:42)
--- NOTE | 2019-06-09 12:07 | PM.DS ---
DS: Diagnosis Admitting Diagnosis Admitting Diagnosis: Unspecified atrial fibrillation Discharge Diagnosis (1) ERICA (acute kidney injury): Code(s): N17.9 - Acute kidney failure, unspecified Status: Acute Assessment and Plan: Cr normal at baseline and was 0.9 on admission but increased the next day and peaked at 2.5. Patient did have possible allergic reaction with the Rocephin. Consider AIN. Had contrast on admission but seems too soon for contrast induced kidney injury. No peripheral eosinophilia. TCK normal. Complemetns normal as well. Urine eos negative. Has small scarred bladder from XRT therapy. Cr better today with Cr 1.2 with improved UOP. Initial UA noted but many squamous cells and only 31 WBC in UA. UCx growing Enterococcus and Pseudomonas but may be contaminate. We repeated the UA but again with moderate squamous cells and only 21 WBC in the UA. Both have 3+LE. Pateint is asymptomatic and feels well today despite not covering for this bacteria. No fevers and WBC normal yesterday. Explained this to the patient and she is agreeable with plan to treat only the PNA now with abx. Explained that she needs to seek treatment if she starts to not feel well or has urinary symptoms. (2) Pneumonia of right upper lobe due to infectious organism: Code(s): J18.9 - Pneumonia, unspecified organism Status: Acute Assessment and Plan: CXR clear but CTA of the chest showing no PE but mild airspace disease right upper lobe consistent with bronchiolitis versus pneumonia. She has been started on doxycycline. She potentially had an issue with the Rocephin in the emergency room. She has joint pain with Levaquin. Started on Prednisone for the wheezing with improvement. (3) Multifocal atrial tachycardia: Code(s): I47.1 - Supraventricular tachycardia Status: Acute Assessment and Plan: [place] had AFib/RVR in ER and Digoxin given. EKG however more consistent with MAT. Cardiology consult obtained and they felt patient did not have AFib. Echo showing EF 70% with diastolic dysfunction Grade 1. No recurrence. (4) Elevated troponin: Code(s): R79.89 - Other specified abnormal findings of blood chemistry Status: Acute Assessment and Plan: Troponin trended upward to 0.2. Echo showing diastolic dysfunction grade 1 with EF of 70%. Could be related to the tachycardia. Trending down on repeat. (5) Hypertension: Qualifiers: Hypertension type: essential hypertension Qualified Code(s): I10 - Essential (primary) hypertension Code(s): I10 - Essential (primary) hypertension Status: Acute Assessment and Plan: Blood pressure monitored closely. Verapamil has been resumed. Blood pressure well controlled. Continue to monitor. Continue to hold lisinopril for now. 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 She had recurrence with positive lymph node biopsy last year. She has opted not to proceed with further treatment. She will consider hospice when the time comes. DS: Summary Hospital Course Reason for hospitalization: 78yo female here for cough, fever and nausea/vomiting. Please see H&P for details. Hospital Course: As above Time Spent with Patient Time attestation: Total time spent providing and/or coordinating discharge services: 32 minutes Time spent: Greater than 30 minutes Specific discharge activities: Discussed with Nephrology. Extra time with patient Education. Exam Narrative: Exam Narrative: AF 130/64 Gen - NARD sitting up in a chair Chest - few basilar rhonchi o/w clear, nml RR CV - RRR S1/S2 Abd - Soft, NT/ND, Positive BS. Colostomy in the left side of the abdomen with soft stool (improvement in stool output per patient) Ext - no peda
[2019-06-09 15:12] LABS: Legionella pneumophila Ag Ur Not Detected (Not Detected)
[2019-06-09 20:38] LABS: Pneumococcal Antigen Urine Not Detected (Not Detected)
[2019-06-10 09:46] LABS: Complement Total CH50 >60 U/mL (31-60)
--- NOTE | 2019-06-17 10:56 | PC.NURSE ---
Blood cx are negative Legionaella- negative Pneumococcal- negative Urine cx- 3 or more organisms present. Each >10,000. Considered to be normal kraig contamination on external genitalia. Dr. Nam ibarra.
== END 2019-06-09 15:47 | disposition home health service (06) | DRG 194 ==
LOC: ANHED 16:33 → ANHIMU 16:50 → ANH3MED 06-07 14:06
PROVIDERS: Internal Medicine Nephrology; Physician Assistant; Admitting Provider Internal Medicine; Emergency Provider Emergency Medicine; PCP Family Medicine; Visit Provider Internal Medicine
DX: J18.9 Pneumonia, unspecified organism (principal); I47.1 Supraventricular tachycardia; C22.1 Intrahepatic bile duct carcinoma; N17.9 Acute kidney failure, unspecified; R79.89 Other specified abnormal findings of blood chemistry; I10 Essential (primary) hypertension; D64.9 Anemia, unspecified; M19.90 Unspecified osteoarthritis, unspecified site; G62.9 Polyneuropathy, unspecified; I48.0 Paroxysmal atrial fibrillation; E78.5 Hyperlipidemia, unspecified; K21.9 Gastro-esophageal reflux disease without esophagitis; F41.8 Other specified anxiety disorders; N31.8 Other neuromuscular dysfunction of bladder; Z96.653 Presence of artificial knee joint, bilateral; Z85.41 Personal history of malignant neoplasm of cervix uteri; Z90.710 Acquired absence of both cervix and uterus; Z90.49 Acquired absence of other specified parts of digestive tract; Z98.42 Cataract extraction status, left eye; Z98.41 Cataract extraction status, right eye
CPT/HCPCS: 36415; 36600; 71045; 71046; 71275; 76775; 80048; 80053; 80069; 81001; 82375; 82550; 82570; 82805; 83050; 83605; 83735; 84100; 84156; 84300; 84443; 84484; 85025; 85380; 85999; 86140; 86160; 86162; 87040; 87077; 87086; 87088; 87186; 87449; 87804; 87899; 93005; 93970; 94640; 96365; 96375; 97110; 97116; 97161; 97165; 99285; A9270; C8929; J0456; J0696; J1160; J2060; J2405; J7030; J7512; Q9957; Q9967

== ENCOUNTER 2019-07-12 20:47 | Emergency (ER) | payer MEDICARE, SELFPAY ==
--- NOTE | ~2019-07-12 | XR_ITS ---
XR chest 1V portable DATE: 07/12/2019 21:41 INDICATION: Shortness of breath, weakness TECHNIQUE: Portable upright AP chest on 07/12/2019 at 2141 hours COMPARISON: 06/05/2019 portable AP chest FINDINGS: Normal heart size. There is aortic calcification and tortuosity. No hilar or mediastinal en largement. No pulmonary infiltrate or consolidation, pleural effusion or pulmonary vascular congestion or pneumo thorax. Diffuse osteopenia. Surgical clips overlie the right upper quadrant of the abdomen. IMPRESSION: No active cardiopulmonary disease Aortic atherosclerosis Reviewed, dictated and finalized at location A.
[2019-07-12 20:47] VITALS: BP 148/102; PULSE 89; RESP 19; TEMP 36.8; O2SAT 98
--- NOTE | 2019-07-12 20:55 | ECG_ITS ---
Measurements Intervals [place] Rate: 84 P: CA: 0 QRS: -15 QRSD: 81 T: 57 QT: 407 QTc: 482 Interpretive Statements SINUS RHYTHM FREQUENT ATRIAL PREMATURE COMPLEXES VOLTAGE CRITERIA FOR LVH BORDERLINE ST ABNORMALITY- LATERAL LEADS BASELINE ARTIFACT- I, II ABNORMAL ECG Electronically Signed On 07-13-2019 8:32:32 CDT by Alexandru Patel D.O.
[2019-07-12 21:05] VITALS: PULSE 84; O2SAT 97
[2019-07-12 21:13] LABS: Basophils Absolute Auto 0.1 K/mm3 (0.0-0.1); Basophils Percent Auto 0.9 % (0.2-1.2); Eosinophils Absolute Auto 0.1 K/mm3 (0-0.3); Eosinophils Percent Auto 2.2 % (0-4.4); Hematocrit 40.4 % (37.0-47.0); Hemoglobin 13.1 g/dL (12.0-15.0); Immature Granulocyte Absolute 0.02 K/mm3 (0.00-0.031); Immature Granulocyte Percent A 0.3 % (0-0.5); Lymphocytes Percent Auto 21.5 % (18.3-44.2); Mean Corpuscular HGB Conc 32.4 g/dl (32-36); Mean Corpuscular Hemoglobin 27.4 pg (26-34); Mean Corpuscular Volume 84.5 fl (80-100); Mean Platelet Volume 10.3 fl (7.4-10.4); Monocytes Absolute Auto 0.6 K/mm3 (0.1-0.6); Monocytes Percent Auto 9.8 % (2.6-8.5); Neutrophils Absolute Auto 4.2 K/mm3 (1.3-6.7); Neutrophils Percent Auto 65.3 % (45.5-73.1); Platelet Count Result 233 k/mm3 (150-375); Red Blood Count 4.78 M/mm3 (4.2-5.4); Red Cell Distribution Width 13.9 % (11.5-14.5); White Blood Count 6.5 K/mm3 (4.5-10.0)
--- NOTE | 2019-07-12 21:16 | ED.SOB ---
HPI - SOB/Dyspnea General Chief Complaint: Shortness of Breath/Dyspnea Stated Complaint: SOB Time Seen by Provider: 07/12/19 20:55 History of Present Illness HPI Narrative: Patient presents via EMS for increasing shortness of breath over the last couple days. This occurs mostly when she lays down at night to sleep and she feels like she cannot catch her breath and gets very nervous and upset. It also occurs when she is walking around the house. She has a hard time remembering when this started, but she is sure it is getting worse. She sleeps with just one pillow, and feels better if she sits up or stands up. 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 He said her appetite in the last couple days has been so poor that the food almost her pulses her. She has noticed increased swelling in her ankles. She says her weight is currently 230 pounds. She does not usually weigh herself. She has no history of congestive heart failure. She denies cough, vomiting, problems with her bowels, recent illness. MD elicited complaint: shortness of breath Related Data Home Medications Medication Instructions Recorded Confirmed alprazolam 0.5 mg PO HS 05/26/19 06/05/19 amlodipine 5 mg PO DAILY 05/26/19 06/05/19 bupropion HCl 150 mg PO QPM 05/26/19 06/05/19 citalopram 40 mg DAILY 05/26/19 06/05/19 gabapentin 400 mg PO BID 05/26/19 06/05/19 hydroxyzine HCl 25 mg PO QID PRN 05/26/19 06/05/19 lisinopril 20 mg PO DAILY 05/26/19 06/05/19 potassium chloride 20 meq PO DAILY 05/26/19 06/05/19 sumatriptan succinate 100 mg PO PRN 05/26/19 06/05/19 verapamil 180 mg PO DAILY 05/26/19 06/05/19 Allergies Allergy/AdvReac Type Severity Reaction Status Date / Time ceftriaxone Allergy Intermediate Dyspnea / Verified 07/12/19 20:54 SOB Sulfa (Sulfonamide Allergy Unknown Unknown Verified 07/12/19 20:54 Antibiotics) levofloxacin AdvReac Mild Joint Pain Verified 07/12/19 20:54 Rocephin Allergy Unknown Dyspnea/SOB Uncoded 06/11/19 12:38 Review of Systems Review of Systems: Narrative: CONSTITUTIONAL: Denies fever, chills, or sweats. EYES: Denies visual changes, redness, or discharge. ENT: Denies rhinorrhea, congestion, sore throat, or otalgia. CARDIOVASCULAR: Denies chest pain, palpitations. RESPIRATORY: Denies cough. GASTROINTESTINAL: Denies abdominal pain, nausea, vomiting, or diarrhea. GENITOURINARY: Denies dysuria or hematuria. SKIN: Denies rash or itching. MUSCULOSKELETAL: Denies back pain, joint pain, or myalgia. NEUROLOGIC: Denies headache, numbness, or weakness. PSYCHIATRIC: Denies anxiety or depression. All systems reviewed & are unremarkable except as noted in HPI and below PMFSH Past Medical History Medical History Cervical cancer In 1988. She did receive radiation implants with subsequent damage to both the bladder and the colon. In 2005 she underwent partial colon resection with colostomy. She also has neurogenic bladder and has intermittently had indwelling Vasquez catheters. Cholangiocarcinoma Status post resection and November [address] Melgar, hepatobiliary specialist at [facility]. Lymph node biopsied in November 2018 was positive for metastatic disease, but she has declined further treatment. Chronic anemia Degenerative disc disease Depression with anxiety GERD (gastroesophageal reflux disease) History of kidney stones Hyperlipidemia Hypertension Migraine headache Osteoarthritis Peripheral neuropathy UTI (urinary tract infection) Frequent urinary tract infections, with last culture growing out Pseudomonas. Surgical History Surgical History History of colon resection With colostomy secondary to complications from radiation therapy, 2015. History of resection of liver In November [address] Jaimes at [facility]. Status post cataract ex
[2019-07-12 21:21] LABS: Alveolar/Arterial O2 Gradient 27.3 mmHg; Base Excess ABG 0.2 mEq/l (+/-2.0); Fractional Inspired Oxygen 21 %; HCO3 ABG 23.6 mEq/l (22.0-26.0); Oxygen Content ABG 17.5 %vol (16.0-22.0); Oxygen Saturation ABG 96.5 % (95.0-100.0); Oxyhemoglobin 95.6 % THb (90.0-100.0); PCO2 ABG 34.5 mmHg (35.0-45.0); PO2 ABG 81.1 mmHg (80.0-100.0); PO2 FiO2 Ratio Arterial Blood 3.86 %; pH ABG 7.453 (7.350-7.450)
[2019-07-12 21:22] LABS: Device ROOM AIR; Modified Allen's Test Pass; Site Drawn LEFT RADIAL
[2019-07-12 21:23] LABS: Prothrombin Time 12.8 Seconds (11.1-14.7)
[2019-07-12 21:24] LABS: Partial Thromboplastin Time 27.9 SECONDS (22.3-36.8)
[2019-07-12 21:25] LABS: Alanine Aminotransferase 10 U/L (4-35); Albumin Level 3.7 g/dL (3.5-5.1); Alkaline Phosphatase 112 U/L (38-126); Aspartate Amino Transferase 23 U/L (14-36); Bilirubin,Total 0.5 mg/dL (0.2-1.3); Blood Urea Nitrogen 12 mg/dL (7-17); Calcium 9.2 mg/dL (8.4-10.2); Carbon Dioxide 27 mmol/L (22-30); Chloride 106 mmol/L (98-107); Estimated Glomerular Filt Rate > 60; Glucose 174 mg/dL (65-105); Potassium 3.2 mmol/L (3.4-5.0); Sodium 141 mmol/L (137-145)
[2019-07-12 21:34] LABS: NT Pro B Type Natriuretic Pept 1100 PG/ML (5-100)
[2019-07-12 21:36] VITALS: BP 159/93; PULSE 81; RESP 22; O2SAT 96
--- NOTE | 2019-07-12 21:45 | PC.NURSE ---
pt reports having a migraine. pt states she takes sumatriptan. EDP notified.
[2019-07-12] MEDS: SUMAtriptan SUCCINATE 25 MG TABLET PO (22:09)
[2019-07-12 22:31] VITALS: BP 170/99; PULSE 71; RESP 17; O2SAT 97
== END 2019-07-12 22:31 | disposition home or self-care (01) ==
PROVIDERS: Emergency Provider Emergency Medicine; PCP Family Medicine
DX: I11.0 Hypertensive heart disease with heart failure (principal); I50.9 Heart failure, unspecified; R06.01 Orthopnea; K21.9 Gastro-esophageal reflux disease without esophagitis; E78.5 Hyperlipidemia, unspecified; C22.1 Intrahepatic bile duct carcinoma; D64.9 Anemia, unspecified; Z93.3 Colostomy status; Z90.49 Acquired absence of other specified parts of digestive tract; Z98.49 Cataract extraction status, unspecified eye; Z87.442 Personal history of urinary calculi; Z96.653 Presence of artificial knee joint, bilateral; Z85.41 Personal history of malignant neoplasm of cervix uteri; Z87.440 Personal history of urinary (tract) infections; Z92.3 Personal history of irradiation
CPT/HCPCS: 36415; 36600; 71045; 80053; 82805; 83880; 85025; 85610; 85730; 93005; 99284; A9270

== ENCOUNTER 2019-07-16 09:44 | Emergency (ER) | payer MEDICARE, SELFPAY ==
[2019-07-16] VITALS (29 sets, daily range): BP systolic 46–180; BP diastolic 21–119; PULSE 85–102; RESP 17–27; TEMP 37.3; O2SAT 94–99
--- NOTE | ~2019-07-16 | CT_ITS ---
EXAMINATION: CTA chest PE protocol DATE: 07/16/2019 12:01 CDT INDICATION: Dyspnea TECHNIQUE: Computed tomographic angiography (CTA) of the chest was performed with 100 mL Omnipaque-35 0 intravenous contrast. The dose-length product was 818.52 mGy-cm. Maximum intensity projection 3D-re constructions of the aorta and other arteries were constructed by the technologist on a separate work station. Automated exposure control and iterative reconstruction technique were employed. COMPARISON: CT dated 06/05/2019 FINDINGS: The study is technically adequate without evidence for pulmonary embolism. There is atheros clerosis of the aorta and coronary arteries. Heart size is normal. No significant pleural or pericard ial effusion. Surgical changes of right hepatectomy. No thoracic lymphadenopathy. 4 mm right upper an d lower lobe nodules, image 38, stable. There are a few calcified granulomas in the lung parenchyma. Mild emphysema. Improved interstitial infiltrates right upper lobe, likely resolving bronchiolitis/pn eumonia. No endobronchial lesions. Chronic T11 compression fracture. Mild lower thoracic spondylosis. IMPRESSION: 1. No evidence for pulmonary embolism. No acute cardiopulmonary disease. 2: Stable 4 mm right upper and lower lobe nodules, likely benign. Twelve-month interval follow-up low dose CT recommended. Reviewed, dictated and finalized at location A.
--- NOTE | ~2019-07-16 | XR_ITS ---
EXAMINATION: XR chest 1V portable 07/16/2019 10:05 INDICATION: Dyspnea PROCEDURE: AP portable chest COMPARISON: Comparison to multiple prior studies sequentially, with oldest reviewed study dated 11/2019. FINDINGS: The lungs are clear. The cardiomediastinal silhouette is within normal limits. There are no pleural effusions. There is no pneumothorax suspected. IMPRESSION: 1: NO ACUTE CARDIOPULMONARY DISEASE. Reviewed, dictated and finalized at location A.
--- NOTE | 2019-07-16 09:48 | ECG_ITS ---
Measurements Intervals [place] Rate: 96 P: 59 [place]: 128 QRS: -12 QRSD: 82 T: 68 QT: 371 QTc: 471 Interpretive Statements SINUS RHYTHM ATRIAL COUPLETS AND ATRIAL PREMATURE COMPLEXES VOLTAGE CRITERIA FOR LVH NONSPECIFIC T-WAVE ABNORMALITY- LATERAL LEADS ABNORMAL ECG Electronically Signed On 07-16-2019 9:58:08 CDT by Alexandru Patel D.O.
--- NOTE | 2019-07-16 10:10 | ED.WEAKNESS ---
HPI - Weakness General Chief complaint: Weakness Stated complaint: Anxiety/difficulty breathing Source: RN notes reviewed and old records reviewed History of Present Illness HPI Narrative: Patient presents emergency department from home for dyspnea. Patient states that she is had difficulty sleeping over the past 5 days. She states whenever she lays down she feels short of breath and has to get up and pace. Patient states she she has been feeling very anxious during this time. She states that she feels fine currently sitting up in bed and denies any current shortness of breath. Denies any fevers or chills chest pain abdominal pain nausea vomiting or any other symptoms. Related Data Home Medications Medication Instructions Recorded Confirmed alprazolam 0.5 mg PO HS 05/26/19 06/05/19 amlodipine 5 mg PO DAILY 05/26/19 06/05/19 bupropion HCl 150 mg PO QPM 05/26/19 06/05/19 citalopram 40 mg DAILY 05/26/19 06/05/19 gabapentin 400 mg PO BID 05/26/19 06/05/19 hydroxyzine HCl 25 mg PO QID PRN 05/26/19 06/05/19 lisinopril 20 mg PO DAILY 05/26/19 06/05/19 potassium chloride 20 meq PO DAILY 05/26/19 06/05/19 sumatriptan succinate 100 mg PO PRN 05/26/19 06/05/19 verapamil 180 mg PO DAILY 05/26/19 06/05/19 Allergies Allergy/AdvReac Type Severity Reaction Status Date / Time ceftriaxone Allergy Intermediate Dyspnea / Verified 07/12/19 20:54 SOB Sulfa (Sulfonamide Allergy Unknown Unknown Verified 07/12/19 20:54 Antibiotics) levofloxacin AdvReac Mild Joint Pain Verified 07/12/19 20:54 Rocephin Allergy Unknown Dyspnea/SOB Uncoded 06/11/19 12:38 Review of Systems Review of Systems: Narrative: Gen.: Denies fevers or chills Eyes: Denies eye pain or visual change ENT: Denies congestion Respiratory: Reports shortness of breath CV: Denies chest pain or palpitations GI: Denies abdominal pain nausea, emesis or diarrhea Musculoskeletal: Denies back pain or muscle pain Neuro: Denies numbness, tingling, weakness or focal weakness Skin: Denies rash Except as documented, all other systems reviewed and negative PMFSH Past Medical History Medical History Cervical cancer In 1988. She did receive radiation implants with subsequent damage to both the bladder and the colon. In 2005 she underwent partial colon resection with colostomy. She also has neurogenic bladder and has intermittently had indwelling Vasquez catheters. Cholangiocarcinoma Status post resection and November [address] Melgar, hepatobiliary specialist at [facility]. Lymph node biopsied in November 2018 was positive for metastatic disease, but she has declined further treatment. Chronic anemia Degenerative disc disease Depression with anxiety GERD (gastroesophageal reflux disease) History of kidney stones Hyperlipidemia Hypertension Migraine headache Osteoarthritis Peripheral neuropathy UTI (urinary tract infection) Frequent urinary tract infections, with last culture growing out Pseudomonas. Social History Social History Social History: The patient lives in her own home in [place]. She does have a cat at home. She has 2 children. She designates her [id number], David Mcelroy, as her surrogate decision maker and she wishes to be a do not resuscitate. She is a lifelong nonsmoker and denies alcohol and drug abuse. Smoking status: Never smoker Alcohol intake: never Substance use: never Spiritual care concerns: No Agree to blood products: No Exam Narrative: Exam Narrative: APPEARANCE: No acute distress, nontoxic, resting in bed EYES: EOMI HEENT: Normocephalic, atraumatic, OMM RESPIRATORY: No respiratory distress Clear to auscultation bilaterally with no rhonchi wheezing or rales. CARDIOVASCULAR: Regular rate and rhythm without murmurs rubs or gallops. ABDOMINAL: Soft, nontender, nondistended, no rebound or guarding MUSCULOSKELETAl: Moves
[2019-07-16 10:15] LABS: Basophils Absolute Auto 0.1 K/mm3 (0.0-0.1); Basophils Percent Auto 0.9 % (0.2-1.2); Eosinophils Absolute Auto 0.1 K/mm3 (0-0.3); Hematocrit 39.8 % (37.0-47.0); Hemoglobin 12.9 g/dL (12.0-15.0); Immature Granulocyte Absolute 0.01 K/mm3 (0.00-0.031); Immature Granulocyte Percent A 0.1 % (0-0.5); Lymphocytes Absolute Auto 1.66 K/mm3 (0.9-3.2); Mean Corpuscular HGB Conc 32.4 g/dl (32-36); Mean Corpuscular Hemoglobin 27.3 pg (26-34); Mean Corpuscular Volume 84.1 fl (80-100); Mean Platelet Volume 10.3 fl (7.4-10.4); Monocytes Absolute Auto 0.7 K/mm3 (0.1-0.6); Monocytes Percent Auto 9.4 % (2.6-8.5); Neutrophils Absolute Auto 4.4 K/mm3 (1.3-6.7); Neutrophils Percent Auto 63.6 % (45.5-73.1); Platelet Count Result 244 k/mm3 (150-375); Red Blood Count 4.73 M/mm3 (4.2-5.4); Red Cell Distribution Width 13.8 % (11.5-14.5); White Blood Count 6.9 K/mm3 (4.5-10.0)
[2019-07-16 10:28] LABS: Partial Thromboplastin Time 24.1 SECONDS (22.3-36.8)
[2019-07-16 10:30] LABS: Blood Urea Nitrogen 13 mg/dL (7-17); Calcium 9.1 mg/dL (8.4-10.2); Carbon Dioxide 25 mmol/L (22-30); Chloride 104 mmol/L (98-107); Estimated CRCL calculation 59 ml/min; Estimated Glomerular Filt Rate > 60; Glucose 241 mg/dL (65-105); Potassium 3.3 mmol/L (3.4-5.0); Sodium 137 mmol/L (137-145)
[2019-07-16 10:42] LABS: NT Pro B Type Natriuretic Pept 476 PG/ML (5-100); Troponin I 0.028 ng/mL (0.000-0.034)
--- NOTE | 2019-07-16 11:26 | PC.NURSE ---
Pt states she misspoke earlier, that she has been urinating more often since starting the lasix, but is no longer able to hold her urine in since she has had chemotherapy. Pt straight cathed for urine speciman, note perineum is reddened. Pt states she has had increased itching to area recently. Explained need to change emilia pad's frequently and keep area as dry as possible.
[2019-07-16 11:34] LABS: Add Urine Microscopic? YES; Appearance Urine Clear (Clear); Bilirubin Urine Negative (Negative); Blood Urine Negative (Negative); Color Urine Yellow (Yellow); Glucose Urine UA Negative (Negative); Hyaline Casts Urine 15-19 /lpf; Ketones Urine Negative (Negative); Leukocyte Esterase Ur 2+ LEU/UL (Negative); Mucus Urine Rare /lpf; Nitrate Urine Negative (Negative); Protein Urine Negative (Negative); Specific Grav Ur 1.013 (1.001-1.035); Squamous Epithelial Cell Urine Rare /hpf (Few); Urobilinogen Urine Negative mg/dL (<2.0); WBC Urine 51-75 /hpf
[2019-07-16] MEDS: NITROFURANTOIN MONOHYD MACROCR 100 MG CAP PO (12:48)
[2019-07-16] MEDS: ACETAMINOPHEN 500 MG TABLET 1000 MG PO (13:02)
[2019-07-16] MEDS: VERAPAMIL HCL ER 120 MG TABLET PO (13:30)
--- NOTE | 2019-07-16 14:00 | PC.NURSE ---
Pt reports her headache has decreased. Removes the bp cuff multiple times because it's so painful . Explained that we gave her verapamil to decrease her heart rate and after that happens we will be able to discharge her. Family returns to bedside per pt request.
[2019-07-16] MEDS: POTASSIUM CHLORIDE 20 MEQ TABLET PO (14:49)
== END 2019-07-16 14:55 | disposition home or self-care (01) ==
PROVIDERS: Emergency Provider Emergency Medicine; PCP Family Medicine
DX: N39.0 Urinary tract infection, site not specified (principal); R06.00 Dyspnea, unspecified; F41.9 Anxiety disorder, unspecified; Z85.41 Personal history of malignant neoplasm of cervix uteri; Z92.3 Personal history of irradiation; C22.1 Intrahepatic bile duct carcinoma; K21.9 Gastro-esophageal reflux disease without esophagitis; E78.5 Hyperlipidemia, unspecified; Z90.49 Acquired absence of other specified parts of digestive tract; Z87.442 Personal history of urinary calculi; D64.9 Anemia, unspecified; I10 Essential (primary) hypertension; Z66 Do not resuscitate
CPT/HCPCS: 36415; 51701; 71045; 71275; 80048; 81001; 83880; 84484; 85025; 85610; 85730; 87077; 87086; 87088; 87186; 93005; 99284; A9270; Q9967

== ENCOUNTER 2019-08-04 10:45 | Emergency (ER) | payer MEDICARE, SELFPAY ==
--- NOTE | ~2019-08-04 | CT_ITS ---
EXAMINATION: CT brain wo con DATE: 08/04/2019 12:03 INDICATION: Head injury post fall TECHNIQUE: Computed tomography (CT) of the head was performed without intravenous contrast. Sagittal and coronal reconstructions were performed. The mA was adjusted according to patient size. Iterative reconstruction technique was employed. The dose-length product was 605.33 mGy-cm. COMPARISON: head CT dated 05/26/2019 FINDINGS: No fracture. No acute intracranial hemorrhage, acute infarction or abnormal extra axial fluid collect ion. There is moderate scattered white matter hypoattenuation consistent with chronic small vessel is chemic disease. Symmetric prominence of the sulci and ventricles consistent with mild to moderate age -appropriate diffuse cerebral volume loss. No mass mass effect. Changes of bilateral intraocular lens replacement. Layering mucus in the bilateral sphenoid sinuses. Mastoid air cells are clear with with hypopneumatized right mastoid. Mild hyperostosis frontalis. Intracranial calcified cerebral atherosc lerosis is noted. IMPRESSION: 1. No fracture or acute intracranial process. 2. Age-related changes including mild to moderate diffuse volume loss and moderate scattered white ma tter hypoattenuation consistent with chronic small vessel ischemic disease. Reviewed, dictated and finalized at location A. IMPRESSION: 1. No fracture or acute intracranial process. 2. Age-related changes including mild to moderate diffuse volume loss and moder ate scattered white matter hypoattenuation consistent with chronic small vessel ischemic disease.
--- NOTE | ~2019-08-04 | XR_ITS ---
XR elbow RT min 3V DATE: 08/04/2019 12:09 INDICATION: Fall. Right elbow injury, pain TECHNIQUE: 4 views COMPARISON: None FINDINGS: No fracture or dislocation or joint effusion is detected. No periosteal reaction or bone de struction. IMPRESSION: No fracture or dislocation or joint effusion Reviewed, dictated and finalized at location A.
--- NOTE | ~2019-08-04 | XR_ITS ---
XR chest 2V DATE: 08/04/2019 12:09 INDICATION: Dyspnea TECHNIQUE: AP and lateral views COMPARISON: 06/05/2019 portable AP chest FINDINGS: Mild cardiomegaly. There is aortic calcification, ectasia and unfolding. No hilar or medias tinal enlargement is evident. No pulmonary infiltrate or consolidation, pleural effusion or pulmonary vascular congestion or pneumothorax is detected. Prominent anterior wedging and loss of height of a lower thoracic vertebral body. Osteopenia. Surgical clips overlie the right upper quadrant of the abdomen. IMPRESSION: Mild cardiomegaly Aortic atherosclerosis Osteopenia; prominent loss of height of lower thoracic vertebral body Reviewed, dictated and finalized at location A.
--- NOTE | ~2019-08-04 | XR_ITS ---
XR knee RT min 4V DATE: 08/04/2019 12:09 INDICATION: Fall. Right knee pain. TECHNIQUE: 4 views including crosstable lateral COMPARISON: None FINDINGS: There is evidence of mild suprapatellar knee joint effusion. Status post right knee arthroplasty without patellar resurfacing. There is prominent periarticular sp urring of the patella. Osteopenia. No fracture or dislocation, periosteal reaction or bone destruction is detected. IMPRESSION: Mild suprapatellar knee joint effusion Osteopenia Right knee arthroplasty Reviewed, dictated and finalized at location A.
[2019-08-04 10:44] VITALS: BP 170/91; PULSE 70; RESP 18; TEMP 36.4; O2SAT 100
--- NOTE | 2019-08-04 10:55 | ECG_ITS ---
Measurements Intervals [place] Rate: 69 P: 84 AR: 160 QRS: -9 QRSD: 82 T: 33 QT: 405 QTc: 435 Interpretive Statements SINUS RHYTHM VOLTAGE CRITERIA FOR LVH BORDERLINE ECG Electronically Signed On 08-04-2019 11:53:41 CDT by Alexandru Patel D.O.
--- NOTE | 2019-08-04 11:09 | ED.FALL ---
HPI - Fall General Chief Complaint: Fall Stated Complaint: FALL Time Seen by Provider: 08/04/19 11:06 Source: patient Mode of arrival: EMS Limitations: no limitations History of Present Illness HPI Narrative: Patient is a 78-year-old female who presents to the emergency department with complaint of fall. Patient states she got up from bed this morning and fell. Patient states when she gets up in the morning, she always sits at the side of the bed to get her equilibrium before she tries to get up. Patient reports if she gets up without getting her equilibrium she is prone to falling, hence why she always does this. Patient's not sure why she did not stop to get her balance before she got up this morning. Patient hit her right knee and right elbow on the floor and hit her head on the wall. Patient denies any loss of consciousness or headache. Patient denies any chest pain. She does report some occasional shortness of breath. Patient does have right upper quadrant abdominal pain and known history of cholangiocarcinoma for which patient is not receiving any treatment. Patient does report she has an appointment with Dr. Ross, oncology, tomorrow at the insistence of her sister. Patient also has a colostomy due to radiation injury from prior cervical cancer. Patient was seen twice at the end of June for symptoms of shortness of breath and noted to have CHF followed by anxiety. Primary care physician was contacted for follow-up on her most recent ED visit 07/16/2019. complaint: fall Onset (ago): minute(s) Fall from: other (getting out of bed) Fall witnessed: no Place fall occurred: home Loss of consciousness: none Prolonged down time: no Symptoms prior to fall: lightheadedness and dizziness Location of injury: head Location of injury - extremities: Right: elbow and knee Severity: similar to previous episodes Related Data Home Medications Medication Instructions Recorded Confirmed alprazolam 0.5 mg PO HS 05/26/19 06/05/19 amlodipine 5 mg PO DAILY 05/26/19 06/05/19 bupropion HCl 150 mg PO QPM 05/26/19 06/05/19 citalopram 40 mg DAILY 05/26/19 06/05/19 gabapentin 400 mg PO BID 05/26/19 06/05/19 hydroxyzine HCl 25 mg PO QID PRN 05/26/19 06/05/19 lisinopril 20 mg PO DAILY 05/26/19 06/05/19 potassium chloride 20 meq PO DAILY 05/26/19 06/05/19 sumatriptan succinate 100 mg PO PRN 05/26/19 06/05/19 verapamil 180 mg PO DAILY 05/26/19 06/05/19 Allergies Allergy/AdvReac Type Severity Reaction Status Date / Time ceftriaxone Allergy Intermediate Dyspnea / Verified 08/04/19 10:51 SOB Sulfa (Sulfonamide Allergy Unknown Unknown Verified 08/04/19 10:51 Antibiotics) levofloxacin AdvReac Mild Joint Pain Verified 08/04/19 10:51 Rocephin Allergy Unknown Dyspnea/SOB Uncoded 08/04/19 10:51 Review of Systems Review of Systems: All systems reviewed & are unremarkable except as noted in HPI and below Cardiovascular: Cardiovascular: Denies chest pain Respiratory: Respiratory: Reports dyspnea (occasional) Gastrointestinal: Gastrointestinal: Reports abdominal pain (chronic) Musculoskeletal: Musculoskeletal: Reports arthralgias Neurologic: Denies headache(s) [facility] Family History Family History Father Family history of heart disease in male family member before age 55 Family history of diabetes mellitus in first degree relative Family history of coronary artery disease Family history of congestive heart failure Hypertension Sibling Family history of diabetes mellitus in first degree relative Other Diabetes mellitus Family history of malignant neoplasm Family history of mental disorder Social History Social History Social History: The patient lives in her own home in [place]. She does have a cat at home. She has 2 children. She designates her [id number], David Mcelroy, as her surrogate decision maker a
[2019-08-04 11:17] LABS: Basophils Absolute Auto 0.1 K/mm3 (0.0-0.1); Basophils Percent Auto 1.2 % (0.2-1.2); Eosinophils Absolute Auto 0.2 K/mm3 (0-0.3); Eosinophils Percent Auto 3.7 % (0-4.4); Immature Granulocyte Absolute 0.01 K/mm3 (0.00-0.031); Immature Granulocyte Percent A 0.2 % (0-0.5); Lymphocytes Absolute Auto 1.81 K/mm3 (0.9-3.2); Lymphocytes Percent Auto 27.6 % (18.3-44.2); Mean Corpuscular HGB Conc 32.5 g/dl (32-36); Mean Corpuscular Hemoglobin 27.3 pg (26-34); Mean Platelet Volume 9.9 fl (7.4-10.4); Monocytes Absolute Auto 0.5 K/mm3 (0.1-0.6); Monocytes Percent Auto 8.1 % (2.6-8.5); Neutrophils Absolute Auto 3.9 K/mm3 (1.3-6.7); Neutrophils Percent Auto 59.2 % (45.5-73.1); Platelet Count Result 237 k/mm3 (150-375); Red Blood Count 4.76 M/mm3 (4.2-5.4); Red Cell Distribution Width 13.4 % (11.5-14.5); White Blood Count 6.6 K/mm3 (4.5-10.0)
[2019-08-04 11:23] LABS: Add Urine Microscopic? YES; Appearance Urine Cloudy (Clear); Bilirubin Urine Negative (Negative); Blood Urine 2+ (Negative); Calcium Oxalate Crystals Urine Present /hpf; Color Urine Yellow (Yellow); Glucose Urine UA Negative (Negative); Ketones Urine Negative (Negative); Leukocyte Esterase Ur 3+ LEU/UL (Negative); Mucus Urine Rare /lpf; Nitrate Urine Negative (Negative); Protein Urine 1+ mg/dL (Negative); RBC Urine 21-50 /hpf (0-2); Specific Grav Ur 1.014 (1.001-1.035); Squamous Epithelial Cell Urine Occasional /hpf (Few); Urobilinogen Urine Negative mg/dL (<2.0); WBC Clumps Urine Present /HPF; WBC Urine >75 /hpf
[2019-08-04 11:29] LABS: Alanine Aminotransferase 9 U/L (4-35); Albumin Level 3.7 g/dL (3.5-5.1); Alkaline Phosphatase 122 U/L (38-126); Aspartate Amino Transferase 20 U/L (14-36); Bilirubin,Total 0.4 mg/dL (0.2-1.3); Blood Urea Nitrogen 11 mg/dL (7-17); Calcium 9.4 mg/dL (8.4-10.2); Carbon Dioxide 31 mmol/L (22-30); Chloride 105 mmol/L (98-107); Estimated CRCL calculation 61 ml/min; Estimated Glomerular Filt Rate > 60; Glucose 116 mg/dL (65-105); Potassium 3.5 mmol/L (3.4-5.0); Sodium 141 mmol/L (137-145)
[2019-08-04 12:26] VITALS: BP 138/127; PULSE 70; RESP 16; TEMP 36.6; O2SAT 99
[2019-08-04] MEDS: ACETAMINOPHEN 500 MG TABLET 1000 MG PO (12:47)
[2019-08-04 15:00] VITALS: BP 172/95; PULSE 71; RESP 16; TEMP 36.9; O2SAT 99
[2019-08-04 15:38] VITALS: BP 138/75; PULSE 78; RESP 16; O2SAT 100
== END 2019-08-04 15:39 | disposition home or self-care (01) ==
PROVIDERS: Emergency Provider Emergency Medicine; PCP Family Medicine
DX: S09.90XA Unspecified injury of head, initial encounter (principal); N30.00 Acute cystitis without hematuria; S50.01XA Contusion of right elbow, initial encounter; S80.01XA Contusion of right knee, initial encounter; W06.XXXA Fall from bed, initial encounter; Z91.81 History of falling
CPT/HCPCS: 36415; 51701; 70450; 71046; 73080; 73564; 80053; 81001; 85025; 87077; 87086; 87088; 87186; 93005; 99284; A9270

== ENCOUNTER 2019-08-31 13:26 | Emergency (ER) | payer OTHER, MEDICARE, SELFPAY ==
[2019-08-31 13:28] VITALS: BP 201/77; PULSE 71; RESP 16; TEMP 37.1; O2SAT 99
--- NOTE | 2019-08-31 13:40 | ECG_ITS ---
Measurements Intervals [place] Rate: 69 P: 66 AK: 154 QRS: 1 QRSD: 83 T: 64 QT: 413 QTc: 445 Interpretive Statements SINUS RHYTHM EARLY PRECORDIAL R/S TRANSITION BORDERLINE ECG Electronically Signed On 08-31-2019 16:41:51 CDT by Alexandru Patel D.O.
--- NOTE | 2019-08-31 13:59 | ED.PSYCH ---
HPI - Psych General Chief Complaint: Psychiatric Symptoms Stated Complaint: I'm having a breakdown Time Seen by Provider: 08/31/19 13:48 History of Present Illness HPI Narrative: Patient presents by the [employer] for sadness and wishing not to live. She was calling her hospice nurse and telling her that it is lonely and she is very anxious and there is no one to talk to, so they called the police to check up on her. Patient lives with her cat, and she has some family or friends that check on her. She has a hospice nurse, and a home health aide. She says there are different people who buy her groceries. She was given 15 to 18 months about 9 months ago, for her cancer. She does not want to go to the custodial. She lives alone. She has Xanax, but no antidepressants. She does not want to harm herself or others. She just does not want to be miserable. She has no other complaints other than she is very thirsty and wants some water. MD complaint: feels depressed Onset (ago): day(s) Duration: constant History of same: Yes Relieving factors: none Exacerbating factors: other (Being alone) Treatments prior to arrival: none Related Data Home Medications Medication Instructions Recorded Confirmed hydroxyzine HCl 25 mg PO QID PRN 05/26/19 06/05/19 sumatriptan succinate 100 mg PO PRN 05/26/19 06/05/19 verapamil 180 mg PO DAILY 05/26/19 06/05/19 lidocaine HCl 08/31/19 08/31/19 lorazepam 08/31/19 Allergies Allergy/AdvReac Type Severity Reaction Status Date / Time ceftriaxone Allergy Intermediate Dyspnea / Verified 08/31/19 13:40 SOB Sulfa (Sulfonamide Allergy Unknown Unknown Verified 08/31/19 13:40 Antibiotics) levofloxacin AdvReac Mild Joint Pain Verified 08/31/19 13:40 Rocephin Allergy Unknown Dyspnea/SOB Uncoded 08/04/19 10:51 Review of Systems Review of Systems: Narrative: CONSTITUTIONAL: Denies fever, chills, or sweats. EYES: Denies visual changes, redness, or discharge. ENT: Denies rhinorrhea, congestion, sore throat, or otalgia. CARDIOVASCULAR: Denies chest pain, palpitations, or edema. RESPIRATORY: Denies cough or dyspnea. GASTROINTESTINAL: Denies abdominal pain, nausea, vomiting, or diarrhea. GENITOURINARY: Denies dysuria or hematuria. SKIN: Denies rash or itching. MUSCULOSKELETAL: Denies back pain, joint pain, or myalgia. NEUROLOGIC: Denies headache, numbness, or weakness. PSYCHIATRIC: She has anxiety and depression. All systems reviewed & are unremarkable except as noted in HPI and below PMFSH Past Medical History Medical History Cervical cancer In 1988. She did receive radiation implants with subsequent damage to both the bladder and the colon. In 2005 she underwent partial colon resection with colostomy. She also has neurogenic bladder and has intermittently had indwelling Vasquez catheters. CHF with unknown LVEF Cholangiocarcinoma Status post resection and November [address] Melgar, hepatobiliary specialist at [place]. Lymph node biopsied in November 2018 was positive for metastatic disease, but she has declined further treatment. Chronic anemia Colostomy in place Degenerative disc disease Depression with anxiety GERD (gastroesophageal reflux disease) History of kidney stones Hyperlipidemia Hypertension Migraine headache Osteoarthritis Paroxysmal atrial fibrillation Peripheral neuropathy Pneumonia of right upper lobe due to infectious organism UTI (urinary tract infection) Frequent urinary tract infections, with last culture growing out Pseudomonas. Surgical History Surgical History History of colon resection With colostomy secondary to complications from radiation therapy, 2015. History of resection of liver In November [address] Jaimes at [place]. Status post cataract extraction Status post cholecystectomy 2005. Status post hysterectomy Status
[2019-08-31 14:09] LABS: Basophils Absolute Auto 0.1 K/mm3 (0.0-0.1); Basophils Percent Auto 0.7 % (0.2-1.2); Eosinophils Absolute Auto 0.3 K/mm3 (0-0.3); Eosinophils Percent Auto 3.7 % (0-4.4); Hematocrit 42.9 % (37.0-47.0); Hemoglobin 13.8 g/dL (12.0-15.0); Immature Granulocyte Absolute 0.01 K/mm3 (0.00-0.031); Immature Granulocyte Percent A 0.1 % (0-0.5); Lymphocytes Percent Auto 34.5 % (18.3-44.2); Mean Corpuscular HGB Conc 32.2 g/dl (32-36); Mean Corpuscular Hemoglobin 27.1 pg (26-34); Mean Corpuscular Volume 84.1 fl (80-100); Mean Platelet Volume 10.5 fl (7.4-10.4); Monocytes Absolute Auto 0.6 K/mm3 (0.1-0.6); Monocytes Percent Auto 8.5 % (2.6-8.5); Neutrophils Absolute Auto 3.5 K/mm3 (1.3-6.7); Neutrophils Percent Auto 52.5 % (45.5-73.1); Platelet Count Result 271 k/mm3 (150-375); Red Cell Distribution Width 12.9 % (11.5-14.5); White Blood Count 6.7 K/mm3 (4.5-10.0)
[2019-08-31 14:27] LABS: Ethanol < 10 mg/dL (<10)
[2019-08-31 14:31] LABS: Alanine Aminotransferase 10 U/L (4-35); Albumin Level 4.2 g/dL (3.5-5.1); Alkaline Phosphatase 107 U/L (38-126); Aspartate Amino Transferase 23 U/L (14-36); Bilirubin,Total 0.5 mg/dL (0.2-1.3); Blood Urea Nitrogen 11 mg/dL (7-17); Calcium 9.4 mg/dL (8.4-10.2); Carbon Dioxide 23 mmol/L (22-30); Chloride 104 mmol/L (98-107); Estimated CRCL calculation 66 ml/min; Estimated Glomerular Filt Rate > 60; Glucose 158 mg/dL (65-105); Potassium 4.1 mmol/L (3.4-5.0); Sodium 137 mmol/L (137-145)
[2019-08-31 15:01] LABS: Add Urine Microscopic? YES; Amorphous Sediment Urine Few; Appearance Urine Cloudy (Clear); Bacteria Urine 1+ /hpf; Bilirubin Urine Negative (Negative); Blood Urine 2+ (Negative); Color Urine Yellow (Yellow); Glucose Urine UA Negative (Negative); Ketones Urine Negative (Negative); Leukocyte Esterase Ur 3+ LEU/UL (Negative); Mucus Urine Rare /lpf; Nitrate Urine Negative (Negative); Protein Urine 2+ mg/dL (Negative); RBC Urine >75 /hpf (0-2); Specific Grav Ur 1.012 (1.001-1.035); Squamous Epithelial Cell Urine Occasional /hpf (Few); Urobilinogen Urine Negative mg/dL (<2.0); WBC Clumps Urine Present /HPF; WBC Urine >75 /hpf
[2019-08-31 15:17] LABS: Amphetamine Screen Urine Negative (Negative); Barbiturate Screen Urine Negative (Negative); Benzodiazepines Screen Urine Negative (Negative); Cannabinoid Screen Urine Negative (Negative); Cocaine Screen Urine Negative (Negative); Methadone Screen Urine Negative (Negative); Opiate Screen Urine Negative (Negative); Phencyclidine Screen Urine Negative (Negative)
[2019-08-31 15:58] VITALS: BP 152/91; PULSE 72; RESP 20; TEMP 37.1; O2SAT 98
== END 2019-08-31 16:01 | disposition hospice, home (50) ==
PROVIDERS: Emergency Provider Emergency Medicine; PCP Family Medicine
DX: C22.1 Intrahepatic bile duct carcinoma (principal); F32.9 Major depressive disorder, single episode, unspecified; N39.0 Urinary tract infection, site not specified; I50.9 Heart failure, unspecified; F41.8 Other specified anxiety disorders; K21.9 Gastro-esophageal reflux disease without esophagitis; Z87.442 Personal history of urinary calculi; I48.0 Paroxysmal atrial fibrillation; G62.9 Polyneuropathy, unspecified; Z85.41 Personal history of malignant neoplasm of cervix uteri; Z98.42 Cataract extraction status, left eye; Z98.41 Cataract extraction status, right eye; Z90.49 Acquired absence of other specified parts of digestive tract; Z96.653 Presence of artificial knee joint, bilateral; R94.31 Abnormal electrocardiogram [ECG] [EKG]; Z79.899 Other long term (current) drug therapy; I11.0 Hypertensive heart disease with heart failure
CPT/HCPCS: 36415; 51701; 80053; 80307; 81001; 84443; 85025; 87077; 87086; 87088; 87186; 93005; 99283; A9270

== ENCOUNTER 2019-09-20 21:13 | HOS | payer OTHER, SELFPAY ==
[2019-09-20 22:40] VITALS: BP 153/60; PULSE 53; RESP 18; TEMP 36.5; O2SAT 96
[2019-09-20 22:48] VITALS: BMI 38.7
[2019-09-21] MEDS: ONDANSETRON HCL ODT 4 MG TABLET 8 MG PO ×2 (04:01→10:00)
[2019-09-21 06:00] VITALS: BP 156/77; PULSE 60; RESP 20; TEMP 36.6; O2SAT 94
[2019-09-21] MEDS: VERAPAMIL HCL ER 120 MG TABLET PO (08:57)
[2019-09-21] MEDS: CEPHALEXIN 250 MG CAPSULE PO (08:57)
[2019-09-21] MEDS: ESCITALOPRAM OXALATE 5 MG TABLET PO (08:57)
[2019-09-21] MEDS: PANTOPRAZOLE 40 MG TABLET PO (08:57)
--- NOTE | 2019-09-21 11:55 | PM.SD ---
Same Day Admit/Disch: HPI History of Present Illness Chief complaint: UTI, weakness Narrative: Amy Underwood is a 78 year old female who was admitted to hospice over a month ago for metastatic recurrence of cholangiocarcinoma. She had prior surgical resection with recurrence discovered earlier this year. Her functional status has been declining. She is no longer able to get up and walk about independently. She has presented the emergency room with urinary tract infections versus colonization. She was hospitalized for right upper lobe pneumonia in May. She was diagnosed with depression in August. Started on antidepressants. She has become increasingly more anxious and confused at home. She is unable to care for herself. About 3 weeks ago she presented the emergency room but refused to go to a snf. She called 911 and presented the emergency room on September 19 due to increased anxiety and fear of being unable to take care of herself. She was also more confused. She denied pain. She now requires assistance with all activities of daily living. Her appetite is diminished. She has difficulty getting to the bathroom in time to urinate. Her colostomy continues to function well but she needs assistance with changing it. [facility] Past Medical History Medical History (Updated 09/21/19 @ 12:36 by Alon Lenz MD) Cervical cancer In 1988. She did receive radiation implants with subsequent damage to both the bladder and the colon. In 2005 she underwent partial colon resection with colostomy. She also has neurogenic bladder and has intermittently had indwelling Vasquez catheters. CHF with unknown LVEF Cholangiocarcinoma Status post resection and November [address] Melgar, hepatobiliary specialist at [facility]. Lymph node biopsied in November 2018 was positive for metastatic disease, but she has declined further treatment. Chronic anemia Colostomy in place Degenerative disc disease Depression with anxiety GERD (gastroesophageal reflux disease) History of kidney stones Hyperlipidemia Hypertension Migraine headache Osteoarthritis Paroxysmal atrial fibrillation Peripheral neuropathy Pneumonia of right upper lobe due to infectious organism UTI (urinary tract infection) Frequent urinary tract infections, with last culture growing out Klebsiella Surgical History Surgical History History of colon resection With colostomy secondary to complications from radiation therapy, 2015. History of resection of liver In November [address] Jaimes at [facility]. Status post cataract extraction Status post cholecystectomy 2005. Status post hysterectomy Status post total bilateral knee replacement Status post tubal ligation Family History Family History Father Family history of heart disease in male family member before age 55 Family history of diabetes mellitus in first degree relative Family history of coronary artery disease Family history of congestive heart failure Hypertension Sibling Family history of diabetes mellitus in first degree relative Other Diabetes mellitus Family history of malignant neoplasm Family history of mental disorder Social History Social History Social History: The patient lives in her own home in [place]. She does have a cat at home. She has 2 children. She designates her ceyrgbh-ej-nhr, David Mcelroy, as her surrogate decision maker and she wishes to be a do not resuscitate. She is a lifelong nonsmoker and denies alcohol and drug abuse. Smoking status: Never smoker Alcohol intake: never Substance use: never Gender identity (if verbalized by the patient): Female Spiritual care concerns: No Agree to blood products: No Same Day Admit/Disch: Med Pre-admit Medications Home Medications Medication
== END 2019-09-21 13:30 | disposition hospice, inpatient (51) | DRG 951 ==
PROVIDERS: Admitting Provider Internal Medicine; PCP Family Medicine; Visit Provider Internal Medicine
DX: Z51.5 Encounter for palliative care (principal); C22.1 Intrahepatic bile duct carcinoma; N39.0 Urinary tract infection, site not specified; I47.1 Supraventricular tachycardia; F41.9 Anxiety disorder, unspecified; F41.8 Other specified anxiety disorders; I11.0 Hypertensive heart disease with heart failure; I50.9 Heart failure, unspecified; F32.9 Major depressive disorder, single episode, unspecified; D64.9 Anemia, unspecified; N31.9 Neuromuscular dysfunction of bladder, unspecified; K21.9 Gastro-esophageal reflux disease without esophagitis; E78.5 Hyperlipidemia, unspecified; M19.90 Unspecified osteoarthritis, unspecified site; I48.0 Paroxysmal atrial fibrillation; G62.9 Polyneuropathy, unspecified; Z96.653 Presence of artificial knee joint, bilateral; Z66 Do not resuscitate; Z98.42 Cataract extraction status, left eye; Z98.41 Cataract extraction status, right eye; Z90.49 Acquired absence of other specified parts of digestive tract; Z90.710 Acquired absence of both cervix and uterus; Z93.3 Colostomy status; Z85.41 Personal history of malignant neoplasm of cervix uteri
CPT/HCPCS: A9270; J2060

== ENCOUNTER 2019-09-21 17:08 | Emergency (ER) | payer OTHER, MEDICARE, SELFPAY ==
[2019-09-21 17:20] VITALS: PULSE 74; RESP 20; TEMP 36.5; O2SAT 97
--- NOTE | 2019-09-21 17:20 | PC.NURSE ---
Dr Watson gave verbal order for Zyprexa 10mg IM
[2019-09-21] MEDS: OLANZapine 10 MG INJ VIAL IM (17:23)
[2019-09-21 17:58] LABS: Basophils Percent Auto 0.5 % (0.2-1.2); Eosinophils Absolute Auto 0.1 K/mm3 (0-0.3); Eosinophils Percent Auto 1.9 % (0-4.4); Hematocrit 36.6 % (37.0-47.0); Hemoglobin 11.8 g/dL (12.0-15.0); Immature Granulocyte Absolute 0.02 K/mm3 (0.00-0.031); Immature Granulocyte Percent A 0.3 % (0-0.5); Mean Corpuscular HGB Conc 32.2 g/dl (32-36); Mean Corpuscular Hemoglobin 26.9 pg (26-34); Mean Corpuscular Volume 83.4 fl (80-100); Mean Platelet Volume 9.9 fl (7.4-10.4); Monocytes Absolute Auto 0.5 K/mm3 (0.1-0.6); Monocytes Percent Auto 6.1 % (2.6-8.5); Neutrophils Absolute Auto 5.9 K/mm3 (1.3-6.7); Neutrophils Percent Auto 79.2 % (45.5-73.1); Platelet Count Result 224 k/mm3 (150-375); Red Blood Count 4.39 M/mm3 (4.2-5.4); White Blood Count 7.5 K/mm3 (4.5-10.0)
[2019-09-21 18:09] LABS: Alanine Aminotransferase 10 U/L (4-35); Albumin Level 3.7 g/dL (3.5-5.1); Alkaline Phosphatase 105 U/L (38-126); Aspartate Amino Transferase 21 U/L (14-36); Bilirubin,Total 0.7 mg/dL (0.2-1.3); Blood Urea Nitrogen 12 mg/dL (7-17); Calcium 8.8 mg/dL (8.4-10.2); Carbon Dioxide 26 mmol/L (22-30); Chloride 104 mmol/L (98-107); Estimated CRCL calculation 52 ml/min; Estimated Glomerular Filt Rate > 60; Glucose 131 mg/dL (65-105); Potassium 3.1 mmol/L (3.4-5.0); Sodium 137 mmol/L (137-145)
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
[2019-09-21 18:32] VITALS: BP 144/77; PULSE 73; RESP 20; O2SAT 95
[2019-09-21 19:25] VITALS: BP 142/88; PULSE 66; RESP 20; O2SAT 98
--- NOTE | 2019-09-21 20:00 | PC.NURSE ---
PT RESTING CALMLY WITH AUTOMOBILES SALESPERSON AND HOUSE SUP AT BEDSIDE. RESTRAINTS REMOVED. PT TOLERATED WELL.
[2019-09-21 20:09] VITALS: BP 142/88; PULSE 66; RESP 20; O2SAT 100
[2019-09-21 20:10] VITALS: BMI 38.2
[2019-09-21] MEDS: hydrOXYzine pamoate 25 MG CAPSULE 50 MG PO (21:41)
[2019-09-21] MEDS: AMOXICILLIN/CLAVULANATE K 500-125 MG TAB 1 TABLET PO (21:42)
[2019-09-21 22:00] VITALS: BP 170/82; PULSE 66; RESP 20; TEMP 36.9; O2SAT 95
== END 2019-09-21 20:15 | disposition hospice, inpatient (51) ==
LOC: ANHED 17:24 → ANH3MEDSUR 19:23
PROVIDERS: Emergency Provider Emergency Medicine; PCP Family Medicine
DX: R45.6 Violent behavior (principal); C22.1 Intrahepatic bile duct carcinoma; C77.9 Secondary and unspecified malignant neoplasm of lymph node, unspecified; Z85.41 Personal history of malignant neoplasm of cervix uteri; Z93.3 Colostomy status; K21.9 Gastro-esophageal reflux disease without esophagitis; F41.8 Other specified anxiety disorders; Z87.442 Personal history of urinary calculi; E78.5 Hyperlipidemia, unspecified; M19.90 Unspecified osteoarthritis, unspecified site; I48.0 Paroxysmal atrial fibrillation; G62.9 Polyneuropathy, unspecified; Z87.440 Personal history of urinary (tract) infections; Z90.49 Acquired absence of other specified parts of digestive tract; Z98.49 Cataract extraction status, unspecified eye; Z96.653 Presence of artificial knee joint, bilateral
CPT/HCPCS: 36415; 80053; 85025; 96372; 96374; 96375; 99285; A9270; J2060; J2270

== ENCOUNTER 2019-09-21 19:04 | HOS | payer OTHER, SELFPAY ==
--- NOTE | 2019-09-21 22:40 | PC.NURSE ---
This patient, Amy Underwood, was admitted to 3 [facility] Surg Room 322-02. Patient/family oriented to hospital policies and general routines including ID bracelet, bed and alarms, visiting hours, pain management, procedures, bathroom and other care routines, personal items, smoking policy, room service/diet, and visiting hours. Valuables list has been completed. Information on how to activate the Rapid Response Team has been discussed. Patient/Family are encouraged to report perceived risks to care and to ask questions if they do not understand what they are told or what they should do. pt arrives to floor @ 2009.
[2019-09-22] MEDS: DIVALPROEX SODIUM 250 MG TABEC PO (09:15)
[2019-09-22] MEDS: AMOXICILLIN/CLAVULANATE K 500-125 MG TAB 1 TABLET PO (09:16)
[2019-09-22] MEDS: ESCITALOPRAM OXALATE 5 MG TABLET PO (09:16)
[2019-09-22] MEDS: PANTOPRAZOLE 40 MG TABLET PO (09:17)
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
[2019-09-22 15:30] VITALS: BP 151/60; PULSE 58; RESP 14; TEMP 36.6; O2SAT 93
--- NOTE | 2019-09-22 19:51 | PC.NURSE ---
pt oob, very anxious and argumentive wanting to find her clothes and go home, pt states she doesnt feel well and wants to go home. her gait is unsteady and takes x 2 to assister her back to bed. ativan ivp given for anxiety.
--- NOTE | 2019-09-23 01:14 | PC.NURSE ---
09/22/191999 pt very agitated, trying to finder her clothes and leave hospital, refuses all oral meds at this time. pt was given ivp ativan for agitation...will attempt to give meds later.
--- NOTE | 2019-09-23 01:16 | PC.NURSE ---
pt continues to refuse oral meds at this time. 09/22/1909/05/2349
[2019-09-23 06:00] VITALS: BP 142/60; PULSE 48; RESP 20; TEMP 36.1; O2SAT 96
[2019-09-23 10:20] VITALS: BP 157/77; PULSE 68; RESP 18; O2SAT 95
[2019-09-23] MEDS: VERAPAMIL HCL ER 120 MG TABLET PO (10:22)
[2019-09-23] MEDS: DIVALPROEX SODIUM 250 MG TABEC PO (10:22)
[2019-09-23] MEDS: ESCITALOPRAM OXALATE 5 MG TABLET PO (10:22)
[2019-09-23] MEDS: PANTOPRAZOLE 40 MG TABLET PO (10:22)
--- NOTE | 2019-09-23 12:43 | PM.IMPN ---
Progress Note: A&P Assessment and Plan (1) Palliative care by specialist: Code(s): Z51.5 - Encounter for palliative care Status: Acute Assessment and Plan: Requires GIP status for uncontrolled aggressive behavior, likely due to underlying dementia, as well as uncontrolled generalized musculoskeletal pain, likely due to her aggressive behavior. P.o. scheduled Roxanol with p.r.n. for breakthrough pain PO Valproic Acid Scheduled and PRN lorazepam PRN IM haloperidol Switched from escitalpram to HS mirtazapine 09/21 Schedule prochlorperazine for nausea Bowel regimen Continue verapamil sr for AFIB/MAT and HBP Clinically stable at present, though at risk for recurrent aggressive behavior upon transfer Discussed with staff home therapy rn administering p.r.n. haloperidol and p.r.n. lorazepam prior to transfer. (2) Aggressive behavior: Code(s): R46.89 - Other symptoms and signs involving appearance and behavior Status: Acute (3) Colostomy in place: Code(s): Z93.3 - Colostomy status Status: Acute (4) Paroxysmal atrial fibrillation: Code(s): I48.0 - Paroxysmal atrial fibrillation Status: Acute (5) CHF with unknown LVEF: Code(s): I50.9 - Heart failure, unspecified Status: Acute (6) Multifocal atrial tachycardia: Code(s): I47.1 - Supraventricular tachycardia Status: Acute (7) Depression with anxiety: Code(s): F41.8 - Other specified anxiety disorders Status: Acute (8) Cholangiocarcinoma: Code(s): C22.1 - Intrahepatic bile duct carcinoma Status: Acute (9) Hypertension: Qualifiers: Hypertension type: essential hypertension Qualified Code(s): I10 - Essential (primary) hypertension Code(s): I10 - Essential (primary) hypertension Status: Acute Subjective Date/time seen: 09/23/19 12:43 Interval history: Quiet night. No PRN meds required. Patient still resistant to NH but not violent. Review of Systems Review of Systems: Narrative: Denied pain ROS unobtainable: Yes unobtainable due to mental status Exam Narrative: Exam Narrative: Alert. Ox1. States she was told that she was in [facility] but does not believe it. Not sure what year or month it is. Is not sure what town she is in. Head normocephalic Sclera nonicteric Neck no JVD Chest with normal respiratory excursion and effort Extremities without edema Abdomen slightly protuberant with ostomy bag left flank Musculoskeletal tone strength symmetric Neurologic cranial nerves without asymmetry Objective Data Vital Signs Vital Signs: Vital Signs - 24 hr 09/22/19 15:30 09/23/19 06:00 09/23/19 10:20 Temperature 97.8 F 97.0 F L Pulse Rate 58 L 48 L 68 Respiratory Rate 14 20 18 Blood Pressure 151/60 H 142/60 H 157/77 H Pulse Oximetry 93 96 95 Intake/Output Intake/Output: Intake & Output 09/20/19 09/21/19 09/22/19 09/23/19 23:59 23:59 23:59 23:59 Intake Total 400 Balance 400 Meds/Results Medications: Active Medications Generic Name Dose Route Start Last Admin Trade Name Freq PRN Reason Stop Dose Admin Acetaminophen 1,000 mg 09/22/19 13:38 Tylenol Tablet PO Q6H PRN mild pain (scale score 1-4) Amoxicillin/Clavulanate Potassium 1 tablet 09/22/19 09:00 09/23/19 01:12 Augmentin 500-125 Mg Tab PO 09/28/19 09:01 Not Given Q12HR CHICHO Bisacodyl 10 mg 09/22/19 13:46 Dulcolax Suppository RECTAL QAM PRN Constipation Divalproex Sodium 250 mg 09/22/19 08:00 09/23/19 10:22 Depakote Ec Tab PO 250 mg DAILY@0800 CHICHO Administration Divalproex Sodium 500 mg 09/22/19 21:00 09/23/19 01:13 Depakote Ec Tab PO Not Given HS CHICHO Escitalopram Oxalate 5 mg 09/23/19 09:00 09/23/19 10:22 Lexapro PO 5 mg QAM CHICHO Administration Haloperidol Lactate 5 mg 09/22/19 01:33 Haldol Injection IM Q6H PRN Agitation Lidocaine HCl 1 applic 09/22/19 01:31
[2019-09-23 14:00] VITALS: BP 160/80; PULSE 64; RESP 20; TEMP 36.9; O2SAT 94
[2019-09-23] MEDS: LORazepam 1 MG TABLET PO (17:00)
[2019-09-23] MEDS: PROCHLORPERAZINE MALEATE 5 MG TABLET 10 MG PO (17:00)
[2019-09-23] MEDS: SENNOSIDES 8.6 MG TABLET PO (20:35)
[2019-09-23] MEDS: DIVALPROEX SODIUM 250 MG TABEC 500 MG PO (20:35)
[2019-09-23] MEDS: SUMAtriptan SUCCINATE 25 MG TABLET 100 MG PO (20:36)
[2019-09-23] MEDS: MIRTAZAPINE SOLTAB 15 MG TAB.DISPER PO (20:46)
[2019-09-23 21:58] VITALS: BP 167/62; PULSE 72; RESP 20; TEMP 37.3; O2SAT 96
[2019-09-24] MEDS: PROCHLORPERAZINE MALEATE 5 MG TABLET 10 MG PO ×3 (07:38→17:07)
[2019-09-24 08:00] VITALS: BP 149/77; PULSE 63; RESP 18; TEMP 36.4; O2SAT 92
[2019-09-24] MEDS: LORazepam 1 MG TABLET PO ×2 (09:06→17:07)
[2019-09-24] MEDS: PANTOPRAZOLE 40 MG TABLET PO (09:07)
[2019-09-24] MEDS: DIVALPROEX SODIUM 250 MG TABEC PO (09:08)
[2019-09-24] MEDS: ESCITALOPRAM OXALATE 5 MG TABLET PO (09:08)
[2019-09-24] MEDS: VERAPAMIL HCL ER 120 MG TABLET PO (09:09)
--- NOTE | 2019-09-24 12:18 | PM.IMPN ---
Progress Note: A&P Assessment and Plan (1) Palliative care by specialist: Code(s): Z51.5 - Encounter for palliative care Status: Acute Assessment and Plan: Requires GIP status for uncontrolled aggressive behavior, likely due to underlying dementia, as well as uncontrolled generalized musculoskeletal pain, likely due to her aggressive behavior. P.o. scheduled Roxanol with p.r.n. for breakthrough pain PO Valproic Acid Scheduled and PRN lorazepam PRN IM haloperidol Switched from escitalpram to HS mirtazapine 09/21 Schedule prochlorperazine for nausea Bowel regimen Continue verapamil sr for AFIB/MAT and HBP Clinically stable at present, though at risk for recurrent aggressive behavior upon transfer COVID-19 rt-PCR prior to NH transfer (2) Aggressive behavior: Code(s): R46.89 - Other symptoms and signs involving appearance and behavior Status: Acute (3) Colostomy in place: Code(s): Z93.3 - Colostomy status Status: Acute (4) Paroxysmal atrial fibrillation: Code(s): I48.0 - Paroxysmal atrial fibrillation Status: Acute (5) CHF with unknown LVEF: Code(s): I50.9 - Heart failure, unspecified Status: Acute (6) Multifocal atrial tachycardia: Code(s): I47.1 - Supraventricular tachycardia Status: Acute (7) Depression with anxiety: Code(s): F41.8 - Other specified anxiety disorders Status: Acute (8) Cholangiocarcinoma: Code(s): C22.1 - Intrahepatic bile duct carcinoma Status: Acute (9) Hypertension: Qualifiers: Hypertension type: essential hypertension Qualified Code(s): I10 - Essential (primary) hypertension Code(s): I10 - Essential (primary) hypertension Status: Acute Subjective Date/time seen: 09/24/19 12:18 Interval history: Quiet night. No PRN meds required. Patient still resistant to NH but not violent. Mild low back pain. Drowsy. Doesn't like the food here. Review of Systems Review of Systems: All systems reviewed & are unremarkable except as noted in HPI and below Exam Narrative: Exam Narrative: Alert. Ox2.5 Med Franco. August. Head normocephalic Sclera nonicteric Neck no JVD Chest with normal respiratory excursion and effort Extremities without edema Abdomen slightly protuberant with ostomy bag left flank Musculoskeletal tone strength symmetric Neurologic cranial nerves without asymmetry Objective Data Vital Signs Vital Signs: Vital Signs - 24 hr 09/23/19 14:00 09/23/19 21:58 09/24/19 08:00 Temperature 98.4 F 99.1 F 97.6 F Pulse Rate 64 72 63 Respiratory Rate 20 20 18 Blood Pressure 160/80 H 167/62 H 149/77 H Pulse Oximetry 94 96 92 Intake/Output Intake/Output: Intake & Output 09/21/19 09/22/19 09/23/19 09/24/19 23:59 23:59 23:59 23:59 Intake Total 400 240 0 Balance 400 240 0 Meds/Results Medications: Active Medications Generic Name Dose Route Start Last Admin Trade Name Freq PRN Reason Stop Dose Admin Acetaminophen 1,000 mg 09/22/19 13:38 Tylenol Tablet PO Q6H PRN mild pain (scale score 1-4) Bisacodyl 10 mg 09/22/19 13:46 Dulcolax Suppository RECTAL QAM PRN Constipation Divalproex Sodium 250 mg 09/22/19 08:00 09/24/19 09:08 Depakote Ec Tab PO 250 mg DAILY@0800 CHICHO Administration Divalproex Sodium 500 mg 09/22/19 21:00 09/23/19 20:35 Depakote Ec Tab PO 500 mg HS CHICHO Administration Escitalopram Oxalate 5 mg 09/23/19 09:00 09/24/19 09:08 Lexapro PO 5 mg QAM CHICHO Administration Haloperidol Lactate 5 mg 09/22/19 01:33 Haldol Injection IM Q6H PRN Agitation Lidocaine HCl 1 applic 09/22/19 01:31 Lidocaine Jelly 2% MUCOUS MEM Q4H PRN GROIN PAIN Lorazepam 1 mg 09/22/19 01:30 09/23/19 14:50 Ativan Inj IV PUSH 1 mg Q6H PRN Administration Anxiety or air hunger Lorazepam 1 mg 09/22/19 13:38 Ativan Tablet PO
[2019-09-24 20:00] VITALS: BP 187/65; PULSE 64; RESP 18; TEMP 36.9; O2SAT 96
[2019-09-24] MEDS: DIVALPROEX SODIUM 250 MG TABEC 500 MG PO (21:30)
[2019-09-24] MEDS: SENNOSIDES 8.6 MG TABLET PO (21:30)
[2019-09-24] MEDS: MIRTAZAPINE SOLTAB 15 MG TAB.DISPER PO (21:30)
[2019-09-25] MEDS: PROCHLORPERAZINE MALEATE 5 MG TABLET 10 MG PO ×3 (06:19→17:21)
[2019-09-25] MEDS: LORazepam 1 MG TABLET PO ×2 (09:27→17:21)
[2019-09-25] MEDS: PANTOPRAZOLE 40 MG TABLET PO (09:31)
[2019-09-25] MEDS: VERAPAMIL HCL ER 120 MG TABLET PO (09:31)
[2019-09-25] MEDS: DIVALPROEX SODIUM 250 MG TABEC PO (09:31)
[2019-09-25] MEDS: ESCITALOPRAM OXALATE 5 MG TABLET PO (09:31)
--- NOTE | 2019-09-25 12:34 | PM.IMPN ---
Progress Note: A&P Assessment and Plan (1) Palliative care by specialist: Code(s): Z51.5 - Encounter for palliative care Status: Acute Assessment and Plan: Requires GIP status for uncontrolled aggressive behavior, likely due to underlying dementia, as well as uncontrolled generalized musculoskeletal pain, likely due to her aggressive behavior. P.o. scheduled Roxanol with p.r.n. for breakthrough pain PO Valproic Acid Scheduled and PRN lorazepam PRN IM haloperidol Switched from escitalpram to HS mirtazapine 09/21 Schedule prochlorperazine for nausea Bowel regimen Continue verapamil sr for AFIB/MAT and HBP Clinically stable at present, though at risk for recurrent aggressive behavior upon transfer COVID-19 rt-PCR prior to NH transfer (2) Aggressive behavior: Code(s): R46.89 - Other symptoms and signs involving appearance and behavior Status: Acute (3) Colostomy in place: Code(s): Z93.3 - Colostomy status Status: Acute (4) Paroxysmal atrial fibrillation: Code(s): I48.0 - Paroxysmal atrial fibrillation Status: Acute (5) CHF with unknown LVEF: Code(s): I50.9 - Heart failure, unspecified Status: Acute (6) Multifocal atrial tachycardia: Code(s): I47.1 - Supraventricular tachycardia Status: Acute (7) Depression with anxiety: Code(s): F41.8 - Other specified anxiety disorders Status: Acute (8) Cholangiocarcinoma: Code(s): C22.1 - Intrahepatic bile duct carcinoma Status: Acute (9) Hypertension: Qualifiers: Hypertension type: essential hypertension Qualified Code(s): I10 - Essential (primary) hypertension Code(s): I10 - Essential (primary) hypertension Status: Acute Subjective Date/time seen: 09/25/19 12:34 Interval history: Quiet night. No PRN meds required. Patient still resistant to NH but not violent. Mild low back pain improved. Drowsy. Ate fairly well. Review of Systems Review of Systems: All systems reviewed & are unremarkable except as noted in HPI and below ROS unobtainable: Yes unobtainable due to mental status and other (Unreliable due to mental status, confabulation. ) Exam Narrative: Exam Narrative: Alert. Ox2.5 Med Franco. August. Head normocephalic Sclera nonicteric Neck no JVD Chest with normal respiratory excursion and effort Extremities without edema Abdomen slightly protuberant with ostomy bag left flank Musculoskeletal tone strength symmetric Neurologic cranial nerves without asymmetry Objective Data Vital Signs Vital Signs: Vital Signs - 24 hr 09/24/19 20:00 Temperature 98.4 F Pulse Rate 64 Respiratory Rate 18 Blood Pressure 187/65 H Pulse Oximetry 96 Intake/Output Intake/Output: Intake & Output 09/22/19 09/23/19 09/24/19 09/25/19 23:59 23:59 23:59 23:59 Intake Total 400 240 300 370 Balance 400 240 300 370 Meds/Results Medications: Active Medications Generic Name Dose Route Start Last Admin Trade Name Freq PRN Reason Stop Dose Admin Acetaminophen 1,000 mg 09/22/19 13:38 Tylenol Tablet PO Q6H PRN mild pain (scale score 1-4) Bisacodyl 10 mg 09/22/19 13:46 Dulcolax Suppository RECTAL QAM PRN Constipation Divalproex Sodium 250 mg 09/22/19 08:00 09/25/19 09:31 Depakote Ec Tab PO 250 mg DAILY@0800 CHICHO Administration Divalproex Sodium 500 mg 09/22/19 21:00 09/24/19 21:30 Depakote Ec Tab PO 500 mg HS CHICHO Administration Escitalopram Oxalate 5 mg 09/23/19 09:00 09/25/19 09:31 Lexapro PO 5 mg QAM CHICHO Administration Haloperidol Lactate 5 mg 09/22/19 01:33 Haldol Injection IM Q6H PRN Agitation Lidocaine HCl 1 applic 09/22/19 01:31 Lidocaine Jelly 2% MUCOUS MEM Q4H PRN GROIN PAIN Lorazepam 1 mg 09/22/19 01:30 09/23/19 14:50 Ativan Inj IV PUSH 1 mg Q6H PRN Administration Anxiety or air hunger Lorazepam
[2019-09-25 13:06] LABS: SARS-CoV-2 RNA PCR Negative
[2019-09-25 14:25] VITALS: BP 112/50; PULSE 63; RESP 16; TEMP 36.3; O2SAT 92
[2019-09-25] MEDS: DIVALPROEX SODIUM 250 MG TABEC 500 MG PO (20:59)
[2019-09-25] MEDS: MIRTAZAPINE SOLTAB 15 MG TAB.DISPER PO (20:59)
[2019-09-25 22:00] VITALS: BP 127/52; PULSE 66; RESP 18; TEMP 37.2; O2SAT 95
[2019-09-25 23:14] VITALS: PULSE 66; RESP 18; O2SAT 95
[2019-09-26] MEDS: PROCHLORPERAZINE MALEATE 5 MG TABLET 10 MG PO ×2 (06:25→08:11)
[2019-09-26] MEDS: DIVALPROEX SODIUM 250 MG TABEC PO (08:10)
[2019-09-26] MEDS: ESCITALOPRAM OXALATE 5 MG TABLET PO (08:10)
[2019-09-26] MEDS: VERAPAMIL HCL ER 120 MG TABLET PO (08:10)
[2019-09-26] MEDS: PANTOPRAZOLE 40 MG TABLET PO (08:10)
[2019-09-26] MEDS: LORazepam 1 MG TABLET PO (08:13)
--- NOTE | 2019-09-26 08:56 | PM.DS ---
DS: Admitting Diagnosis Admitting Diagnosis Admitting Diagnosis: Encounter for palliative care DS: Discharge Diagnosis Discharge Diagnosis (1) Palliative care by specialist: Code(s): Z51.5 - Encounter for palliative care Status: Acute Assessment and Plan: Requires GIP status for uncontrolled aggressive behavior, likely due to underlying dementia, as well as uncontrolled generalized musculoskeletal pain, likely due to her aggressive behavior. P.o. scheduled Roxanol with p.r.n. for breakthrough pain PO Valproic Acid Scheduled and PRN lorazepam PRN IM haloperidol Switched from escitalpram to HS mirtazapine 09/21 Schedule prochlorperazine for nausea Bowel regimen Continue verapamil sr for AFIB/MAT and HBP Clinically stable at present, though at risk for recurrent aggressive behavior upon transfer COVID-19 rt-PCR prior to NH transfer (2) Aggressive behavior: Code(s): R46.89 - Other symptoms and signs involving appearance and behavior Status: Acute (3) Colostomy in place: Code(s): Z93.3 - Colostomy status Status: Acute (4) Paroxysmal atrial fibrillation: Code(s): I48.0 - Paroxysmal atrial fibrillation Status: Acute (5) CHF with unknown LVEF: Code(s): I50.9 - Heart failure, unspecified Status: Acute (6) Multifocal atrial tachycardia: Code(s): I47.1 - Supraventricular tachycardia Status: Acute (7) Depression with anxiety: Code(s): F41.8 - Other specified anxiety disorders Status: Acute (8) Cholangiocarcinoma: Code(s): C22.1 - Intrahepatic bile duct carcinoma Status: Acute (9) Hypertension: Qualifiers: Hypertension type: essential hypertension Qualified Code(s): I10 - Essential (primary) hypertension Code(s): I10 - Essential (primary) hypertension Status: Acute DS: Summary Time Spent with Patient Time attestation: Total time spent providing and/or coordinating discharge services: Exam Narrative: Exam Narrative: Drowsy. Comfortable. (Telephone encounter prior to discharge this AM) DS: Data Data Completed and Pending Labs on day of discharge: Labs from last 24 hours 09/25/19 03:30 SARS-CoV-2 RNA (RT-PCR) Negative Discharge Plan Discharge Attending physician on discharge: Alon Lenz Discharging Clinician: Alon Lenz Patient Disposition: Hospice - Medical Facility Activity: as tolerated Diet: as tolerated Stand Alone Forms: General Discharge Information, Detention Discharge Discharge Medications: New morphine concentrate 100 mg/5 mL (20 mg/mL) solution 5 mg PO Q6H Qty: 30 RF: 0 lorazepam 1 mg tablet 1 mg PO BID Qty: 60 RF: 0 divalproex [Depakote] 250 mg Tablet,Delayed Release (Dr/Ec) 250 mg PO DAILY@0800 Qty: 30 RF: 0 divalproex [Depakote] 250 mg Tablet,Delayed Release (Dr/Ec) 500 mg PO HS Qty: 60 RF: 0 haloperidol lactate [Haldol] 5 mg/mL Solution 5 mg IM Q6H PRN (Reason: Agitation) Qty: 1 RF: 0 sennosides [Senokot] 8.6 mg Tablet 8.6 mg PO HS Qty: 30 RF: 0 mirtazapine [Remeron SolTab] 15 mg Tablet,Disintegrating 15 mg PO HS Qty: 30 RF: 0 prochlorperazine maleate 5 mg Tablet 10 mg PO TIDAC Qty: 90 RF: 0 lidocaine HCl 2 % Jelly 1 applic mucous membrane Q4H PRN (Reason: GROIN PAIN) Qty: 60 RF: 0 bisacodyl 10 mg Suppository 10 mg OH QAM PRN (Reason: Constipation) Qty: 4 RF: 0 Continued pantoprazole 40 mg Tablet,Delayed Release (Dr/Ec) 40 mg PO QAM Qty: 30 RF: 0 verapamil 120 mg Capsule,Ext Rel. Pellets 24 Hr 120 mg PO DAILY@0800 Qty: 30 RF: 0 acetaminophen 500 mg tablet 1,000 mg PO Q6H PRN (Reason: mild pain (scale score 1-4)) Qty: 60 RF: 0 Changed morphine concentrate 100 mg/5 mL (20 mg/mL) solution 5 mg PO Q2H PRN (Reason: moderate to severe pain (5-10)) Qty: 30 RF: 0 lorazepam 1 mg tablet 1 mg PO Q4H PRN (Reason: anxiety) Qty: 30
[2019-09-26 10:20] VITALS: BP 122/53; PULSE 72; RESP 16; TEMP 37.2; O2SAT 92
== END 2019-09-26 13:27 | disposition hospice, inpatient (51) | DRG 951 ==
PROVIDERS: Admitting Provider Internal Medicine; PCP Family Medicine; Visit Provider Internal Medicine
DX: Z51.5 Encounter for palliative care (principal); C22.1 Intrahepatic bile duct carcinoma; F03.91 Unspecified dementia, unspecified severity, with behavioral disturbance; Z11.59 Encounter for screening for other viral diseases; E11.42 Type 2 diabetes mellitus with diabetic polyneuropathy; I48.0 Paroxysmal atrial fibrillation; F41.8 Other specified anxiety disorders; I11.0 Hypertensive heart disease with heart failure; I50.9 Heart failure, unspecified; E78.5 Hyperlipidemia, unspecified; K21.9 Gastro-esophageal reflux disease without esophagitis; D64.9 Anemia, unspecified; N31.9 Neuromuscular dysfunction of bladder, unspecified; Z96.653 Presence of artificial knee joint, bilateral; Z93.3 Colostomy status; Z98.42 Cataract extraction status, left eye; Z98.41 Cataract extraction status, right eye; Z90.49 Acquired absence of other specified parts of digestive tract; Z90.710 Acquired absence of both cervix and uterus
CPT/HCPCS: 87635; A9270; C9803; J2060; J2270; U0003